=== PATIENT | male | born 1955 | race Caucasian/White ===

== ENCOUNTER → 2016-08-02 | Outpatient (REF) | payer OTHER ==
[~2016-08-02] MED LIST: /FEXO60TA OR; ALBU17IN2 IN; ASPI81TA83 OR; DEPA500T2 OR; HYDR25TA8 OR; IBUP400T OR; LEVA750T OR; LIPI80TA OR; LISI20TA5 OR; MUCU400T2 OR; NORV5TAB OR; PRED10TA2 OR; PRIL40CA OR; SALINE INH; SING10TA31 OR; SYMB80AE IN; TYLE500T53 OR
[2016-08-02 15:54] LABS: BASO # 0.1 K/mm3 (0.0-0.2); BASO % 0.8 % (0.0-1.0); EOS # 0.2 K/mm3 (0.0-0.50); LARGE UNSTAINED CELL # 0.2 K/mm3 (0.0-0.4); LARGE UNSTAINED CELL % 2.6 % (0.0-4.0); LYMPH # 2.1 K/mm3 (1.5-4.5); LYMPH % 23.5 % (24.0-44.0); MEAN CORPUSCULAR HEMOGLOBIN 33.3 pg (27.0-33.0); MEAN CORPUSCULAR HGB CONC 34.7 g/dl (32.0-36.5); MEAN CORPUSCULAR VOLUME 96.1 fl (80.0-96.0); MONO # 0.6 K/mm3 (0.0-0.8); MONO % 6.9 % (0.0-5.0); NEUTROPHILS # 5.8 K/mm3 (1.8-7.7); NEUTROPHILS % 64.2 % (36.0-66.0); PLATELET COUNT, AUTOMATED 198 k/mm3 (150-450); RED CELL DISTRIBUTION WIDTH 12.8 % (11.5-14.5)
[2016-08-02 16:23] LABS: CHOLESTEROL LEVEL 151 MG/DL (<200); FREE T4 1.02 NG/DL (0.76-1.46); TRIGLYCERIDES LEVEL 137 MG/DL (<150)
== END ==
LOC: M SFHCPLAZ 11:43
PROVIDERS: ATTEND Family Medicine
DX: N18.2 Chronic kidney disease, stage 2 (mild) (principal); E78.2 Mixed hyperlipidemia; R73.01 Impaired fasting glucose; K21.9 Gastro-esophageal reflux disease without esophagitis

== ENCOUNTER → 2017-01-04 | Outpatient (REF) | payer OTHER ==
[2017-01-04 12:07] LABS: BASO # 0.1 10^3/uL (0.0-0.2); BASO % 0.8 % (0.0-1.0); EOS # 0.1 10^3/uL (0.0-0.50); EOS % 1.6 % (0.0-3.0); LYMPH # 2.1 10^3/uL (1.5-4.5); LYMPH % 26.1 % (24.0-44.0); MEAN CORPUSCULAR HEMOGLOBIN 32.6 pg (27.0-33.0); MEAN CORPUSCULAR HGB CONC 34.2 g/dl (32.0-36.5); MEAN CORPUSCULAR VOLUME 95.2 fl (80.0-96.0); MONO # 0.8 10^3/uL (0.0-0.8); MONO % 10.6 % (0.0-5.0); NEUTROPHILS # 4.8 10^3/uL (1.8-7.7); NEUTROPHILS % 59.9 % (36.0-66.0); PLATELET COUNT, AUTOMATED 190 10^3/uL (150-450); RED CELL DISTRIBUTION WIDTH 12.6 % (11.5-14.5)
[2017-01-04 12:41] LABS: ALBUMIN 4.1 GM/DL (3.2-5.2); ALBUMIN/GLOBULIN RATIO 1.32 (1.00-1.93); ALKALINE PHOSPHATASE 73 U/L (45-117); ALT/SGPT 30 U/L (12-78); ANION GAP 7 MEQ/L (8-16); AST/SGOT 17 U/L (15-37); BILIRUBIN,TOTAL 0.7 MG/DL (0.2-1.0); BLOOD UREA NITROGEN 20 MG/DL (7-18); CARBON DIOXIDE LEVEL 28 MEQ/L (21-32); CHLORIDE LEVEL 107 MEQ/L (98-107); CREATININE FOR GFR 1.01 MG/DL (0.70-1.30); GLOMERULAR FILTRATION RATE > 60.0 (>49); GLUCOSE, FASTING 101 MG/DL (80-110); SODIUM LEVEL 142 MEQ/L (136-145); TOTAL PROTEIN 7.2 GM/DL (6.4-8.2)
== END ==
LOC: M SFHCPLAZ 09:33
PROVIDERS: ATTEND Family Medicine
DX: Z12.5 Encounter for screening for malignant neoplasm of prostate (principal); E55.9 Vitamin D deficiency, unspecified; R73.01 Impaired fasting glucose

== ENCOUNTER → 2017-05-10 | Outpatient (REF) | payer OTHER | LOC: M SFHCPLAZ 16:51 | DX: J06.9 Acute upper respiratory infection, unspecified (principal) ==

== ENCOUNTER → 2017-06-14 | Outpatient (REF) | payer OTHER ==
[2017-06-14 15:56] LABS: BASO # 0.1 10^3/uL (0.0-0.2); BASO % 1.3 % (0.0-1.0); EOS # 0.2 10^3/uL (0.0-0.50); EOS % 1.7 % (0.0-3.0); HEMATOCRIT 43.7 % (42.0-52.0); HEMOGLOBIN 14.6 g/dl (14.0-18.0); IMMATURE GRANULOCYTE % 2.4 % (0-3.0); LYMPH # 3.1 10^3/uL (1.5-4.5); LYMPH % 29.1 % (24.0-44.0); MEAN CORPUSCULAR HEMOGLOBIN 32.4 pg (27.0-33.0); MEAN CORPUSCULAR HGB CONC 33.4 g/dl (32.0-36.5); MEAN CORPUSCULAR VOLUME 96.9 fl (80.0-96.0); MONO % 9.3 % (0.0-5.0); NEUTROPHILS # 6.1 10^3/uL (1.8-7.7); NEUTROPHILS % 56.2 % (36.0-66.0); PLATELET COUNT, AUTOMATED 211 10^3/uL (150-450); RED BLOOD COUNT 4.51 10^6/uL (4.30-6.10); RED CELL DISTRIBUTION WIDTH 13.2 % (11.5-14.5); WHITE BLOOD COUNT 10.8 10^3/uL (4.0-10.0)
[2017-06-14 16:11] LABS: ALBUMIN 4.5 GM/DL (3.2-5.2); ALBUMIN/GLOBULIN RATIO 1.41 (1.00-1.93); ALKALINE PHOSPHATASE 71 U/L (45-117); ALT/SGPT 28 U/L (12-78); ANION GAP 6 MEQ/L (8-16); AST/SGOT 17 U/L (7-37); BILIRUBIN,TOTAL 0.7 MG/DL (0.2-1.0); BLOOD UREA NITROGEN 23 MG/DL (7-18); CARBON DIOXIDE LEVEL 29 MEQ/L (21-32); CHLORIDE LEVEL 107 MEQ/L (98-107); CHOLESTEROL LEVEL 171 MG/DL (<200); CHOLESTEROL RISK RATIO 3.489 (<5); CREATININE FOR GFR 1.09 MG/DL (0.70-1.30); GLOMERULAR FILTRATION RATE > 60.0 (>49); GLUCOSE, FASTING 90 MG/DL (70-100); HDL CHOLESTEROL 49 MG/DL (>40); LDL CHOLESTEROL 82.6 MG/DL (<100); NON-HDL-C 122 MG/DL; POTASSIUM SERUM 4.2 MEQ/L (3.5-5.1); SODIUM LEVEL 142 MEQ/L (136-145); TOTAL PROTEIN 7.7 GM/DL (6.4-8.2); TRIGLYCERIDES LEVEL 197 MG/DL (<150)
[2017-06-14 16:13] LABS: ESTIMATED AVERAGE GLUCOSE 108 MG/DL (60-110); HEMOGLOBIN A1c 5.4 %
[2017-06-14 16:44] LABS: TOTAL 25(OH) VITAMIN D 48.1 NG/ML (30.0-100.0)
[2017-06-14 16:45] LABS: PTH INTACT 46.4 PG/ML (18.5-88.0); VITAMIN B12 LEVEL > 2000 PG/ML (247-911)
[2017-06-14 22:17] LABS: HEMATOCRIT 43.7 % (42.0-52.0)
[2017-06-17 13:02] LABS: PRETREATED FOLATE FOR RBCFOL 12.4 NG/ML; RBC FOLATE 595.9 NG/ML (280-791)
== END ==
LOC: M SFHCPLAZ 12:32
DX: D75.89 Other specified diseases of blood and blood-forming organs (principal); E78.2 Mixed hyperlipidemia; R73.01 Impaired fasting glucose; E55.9 Vitamin D deficiency, unspecified

== ENCOUNTER → 2017-11-01 | Outpatient (REF) | payer OTHER ==
[2017-11-01 13:39] LABS: VITAMIN B12 LEVEL 1705 PG/ML (247-911)
[2017-11-01 13:40] LABS: APPEARANCE, URINE CLEAR (CLEAR); BACTERIA, URINE AUTO NEGATIVE (NEGATIVE); BILIRUBIN, URINE AUTO NEGATIVE (NEGATIVE); BLOOD, URINE BLOOD NEGATIVE (NEGATIVE); COLOR, URINE YELLOW (YELLOW); GLUCOSE, URINE (UA) AUTO NEGATIVE (NEGATIVE); KETONE, URINE AUTO NEGATIVE (NEGATIVE); LEUKOCYTE ESTERASE, URINE AUTO NEGATIVE (NEGATIVE); MUCUS, URINE SMALL (NEGATIVE); NITRITE, URINE AUTO NEGATIVE (NEGATIVE); PROTEIN, URINE AUTO NEGATIVE (NEGATIVE); RBC, URINE AUTO 1 /HPF (0-3); SPECIFIC GRAVITY URINE AUTO 1.023 (1.002-1.035); SQUAMOUS EPITHELIAL CELL UR AU 0 /HPF (0-6); UROBILINOGEN, URINE AUTO 0.2 mg/dL (0.0-2.0); WBC, URINE AUTO 2 /HPF (0-3)
[2017-11-01 13:53] LABS: ALBUMIN 4.4 GM/DL (3.2-5.2); ALBUMIN/GLOBULIN RATIO 1.42 (1.00-1.93); ALKALINE PHOSPHATASE 69 U/L (45-117); ALT/SGPT 32 U/L (12-78); ANION GAP 5 MEQ/L (8-16); AST/SGOT 22 U/L (7-37); BILIRUBIN,TOTAL 0.9 MG/DL (0.2-1.0); BLOOD UREA NITROGEN 17 MG/DL (7-18); CALCIUM LEVEL 8.8 MG/DL (8.8-10.2); CARBON DIOXIDE LEVEL 30 MEQ/L (21-32); CHLORIDE LEVEL 108 MEQ/L (98-107); CREATININE FOR GFR 0.99 MG/DL (0.70-1.30); GLOMERULAR FILTRATION RATE > 60.0 (>49); GLUCOSE, FASTING 103 MG/DL (70-100); MAGNESIUM LEVEL 2.4 MG/DL (1.8-2.4); POTASSIUM SERUM 4.2 MEQ/L (3.5-5.1); SODIUM LEVEL 143 MEQ/L (136-145); TOTAL PROTEIN 7.5 GM/DL (6.4-8.2)
[2017-11-01 14:04] LABS: MALB URINE SIEMENS 12.7 MG/L; MAU/CREAT RATIO 6.6 MCG/MG (0.0-30.0)
[2017-11-01 14:31] LABS: ESTIMATED AVERAGE GLUCOSE 117 MG/DL (60-110); HEMOGLOBIN A1c 5.7 %
[2017-11-02 14:27] LABS: INSULIN LEVEL 17.4 uIU/mL (2.6-24.9)
== END ==
LOC: M SFHCPLAZ 11:09
DX: R73.01 Impaired fasting glucose (principal); N18.2 Chronic kidney disease, stage 2 (mild); D75.89 Other specified diseases of blood and blood-forming organs

== ENCOUNTER → 2017-11-01 | Outpatient (CLI) | payer BC, OTHER | LOC: M RAD 11:58 | DX: M16.0 Bilateral primary osteoarthritis of hip (principal) | CPT/HCPCS: 73502 ==

== ENCOUNTER → 2017-11-22 | Outpatient (CLI) | payer BC, OTHER ==
[~2017-11-22] MED LIST changes: -/FEXO60TA OR; -ALBU17IN2 IN; -ASPI81TA83 OR; +CONRAY-43 43% 50ML VIAL (Q9960) As Ordered; -DEPA500T2 OR; -HYDR25TA8 OR; -IBUP400T OR; -LEVA750T OR; +LIDOCAINE 1% MDV 20ML VIAL As Ordered; -LIPI80TA OR; -LISI20TA5 OR; -MUCU400T2 OR; -NORV5TAB OR; -PRED10TA2 OR; -PRIL40CA OR; -SALINE INH; -SING10TA31 OR; -SYMB80AE IN; +TRIAMCINOLONE ACETONIDE SUSP 40 MG/ML VIAL (J3301) As Ordered; -TYLE500T53 OR
== END ==
LOC: M RADPRO 10:43
DX: M16.11 Unilateral primary osteoarthritis, right hip (principal)
CPT/HCPCS: 20610

== ENCOUNTER → 2018-02-16 | Outpatient (CLI) | payer BC, OTHER | LOC: M RADPRO 12:02 | DX: M16.11 Unilateral primary osteoarthritis, right hip (principal) | CPT/HCPCS: 20610 ==

== ENCOUNTER → 2018-04-07 | Outpatient (REF) | payer OTHER ==
[~2018-04-07] MED LIST changes: +/FEXO60TA OR; +ALBU17IN2 IN; +ASPI81TA83 OR; -CONRAY-43 43% 50ML VIAL (Q9960) As Ordered; +DEPA500T2 OR; +HYDR25TA8 OR; +IBUP400T OR; +LEVA750T OR; -LIDOCAINE 1% MDV 20ML VIAL As Ordered; +LIPI80TA OR; +LISI20TA5 OR; +MUCU400T2 OR; +NORV5TAB OR; +PRED10TA2 OR; +PRIL40CA OR; +SALINE INH; +SING10TA31 OR; +SYMB80AE IN; -TRIAMCINOLONE ACETONIDE SUSP 40 MG/ML VIAL (J3301) As Ordered; +TYLE500T53 OR
[2018-04-07 14:10] LABS: BASO # 0.1 10^3/uL (0.0-0.2); EOS # 0.1 10^3/uL (0.0-0.50); HEMATOCRIT 43.3 % (42.0-52.0); HEMOGLOBIN 14.7 g/dl (13.5-17.5); LYMPH # 2.5 10^3/uL (1.5-4.5); MEAN CORPUSCULAR HGB CONC 33.9 g/dl (32.0-36.5); MEAN CORPUSCULAR VOLUME 97.3 fl (80.0-96.0); MONO # 1.2 10^3/uL (0.0-0.8); MONO % 10.1 % (0.0-5.0); NEUTROPHILS # 7.4 10^3/uL (1.8-7.7); NEUTROPHILS % 64.5 % (36.0-66.0); PLATELET COUNT, AUTOMATED 197 10^3/uL (150-450); RED BLOOD COUNT 4.45 10^6/uL (4.30-6.10); WHITE BLOOD COUNT 11.5 10^3/uL (4.0-10.0)
[2018-04-07 14:16] LABS: ALBUMIN 4.3 GM/DL (3.2-5.2); ALT/SGPT 28 U/L (12-78); BILIRUBIN,TOTAL 0.7 MG/DL (0.2-1.0); BLOOD UREA NITROGEN 17 MG/DL (7-18); CARBON DIOXIDE LEVEL 28 MEQ/L (21-32); CHLORIDE LEVEL 106 MEQ/L (98-107); CHOLESTEROL LEVEL 159 MG/DL (<200); CREATININE FOR GFR 1.02 MG/DL (0.70-1.30); GLOMERULAR FILTRATION RATE > 60.0 (>49); GLUCOSE, FASTING 102 MG/DL (70-100); HDL CHOLESTEROL 50 MG/DL (>40); LDL CHOLESTEROL 82 MG/DL (<100); NON-HDL-C 109 MG/DL; POTASSIUM SERUM 4.3 MEQ/L (3.5-5.1); SODIUM LEVEL 142 MEQ/L (136-145); TOTAL PROTEIN 7.2 GM/DL (6.4-8.2); TRIGLYCERIDES LEVEL 135 MG/DL (<150)
[2018-04-07 14:22] LABS: PTH INTACT 36.3 PG/ML (18.5-88.0); TOTAL 25(OH) VITAMIN D 63.8 NG/ML (30.0-100.0)
[2018-04-07 16:03] LABS: HEMOGLOBIN A1c 5.7 %
== END ==
LOC: M SFHCPLAZ 10:53
PROVIDERS: ATTEND Family Medicine
DX: D75.89 Other specified diseases of blood and blood-forming organs (principal); N18.2 Chronic kidney disease, stage 2 (mild); R73.01 Impaired fasting glucose; E78.2 Mixed hyperlipidemia; Z12.5 Encounter for screening for malignant neoplasm of prostate

== ENCOUNTER → 2018-04-27 | Outpatient (CLI) | payer BC, OTHER ==
[~2018-04-27] MED LIST changes: +CONRAY-43 43% 50ML VIAL (Q9960) As Ordered ONE; +LIDOCAINE 1% MDV 20ML VIAL As Ordered ONE; +TRIAMCINOLONE ACETONIDE SUSP 40 MG/ML VIAL (J3301) As Ordered ONE
--- NOTE | 2018-04-27 18:09 | REP ---
RIGHT HAND INJECTION The procedure was performed under the direct supervision of Dr. Chen. The benefits and risks including but not limited to pain infection bleeding and anaphylaxis were explained to the patient and informed consent was obtained. The right femoral neck was localized using fluoroscopic guidance. The skin was prepped and draped in a sterile fashion. 1% lidocaine was used as a local anesthetic. Using fluoroscopic guidance a 22-gauge spinal needle was inserted and advanced to the femoral neck. 0.5 ml of Conray 43 was injected to verify placement. 5 ml of a solution containing 4 ml of 1% lidocaine and 1 ml of Kenalog 40 mg injected. The needle was then removed. The patient tolerated the procedure well and there were no immediate complications. Less than 6 seconds of fluoroscopy time was utilized for this procedure. Reviewed by ALANIS Dias 04/27/2018 04:13 P Electronically Signed by Oswaldo Chen MD 04/27/2018 05:59 P
== END ==
LOC: M RADPRO 10:03
PROVIDERS: ATTEND Family Medicine
DX: M16.11 Unilateral primary osteoarthritis, right hip (principal)
CPT/HCPCS: 20610; 77002; J3301; Q9960

== ENCOUNTER 2018-09-19 08:12 | Day surgery (SDC) | payer MEDICARE, BC, OTHER ==
[~2018-09-19] VITALS: Ht 177.8 cm; Wt 93.9 kg
[~2018-09-19 08:12] MED LIST changes: +ALBU83IN INH; +ASPI81CH48 PO; +ATOR80TA59 PO; -CONRAY-43 43% 50ML VIAL (Q9960) As Ordered ONE; +D-101000 PO; +D3 S20002 PO; +FISH1000 PO; -LIDOCAINE 1% MDV 20ML VIAL As Ordered ONE; +LISI-538 PO; +MAGN250T7 PO; +MONT10TA2 PO; +NS 1,000 ML IV ONE; +OMEP-221 PO; +THIA100T7 PO; -TRIAMCINOLONE ACETONIDE SUSP 40 MG/ML VIAL (J3301) As Ordered ONE; +VIAG100T PO; +VITA1TAB23 PO; +VITA500T PO; +VITA50TA47 PO; +VITA50TA7 PO
[2018-09-19] MEDS ORDERED: PROPOFOL 200 MG/20 ML VIAL As Ordered ONE ×2 (08:58→10:02)
--- NOTE | 2018-09-19 09:54 | ROOR ---
Patient Name: Donta Burrows Procedure Date: 09/19/2018 9:26 AM Date of : 1955 Age: 63 Room: [facility] Gender: Male Note Status: Finalized Procedure: Total Colonoscopy to Cecum Indications: Colon cancer screening in patient at increased risk: Family history of 1st-degree relative with colon polyps, Incidental - Abdominal pain in the right lower quadrant Providers: Taras Jones MD Referring MD: Elvin Owens MD Requesting Provider: Medicines: Monitored Anesthesia Care Complications: No immediate complications. Procedure: Pre-Anesthesia Assessment: - The heart rate, respiratory rate, oxygen saturations, blood pressure, adequacy of pulmonary ventilation, and response to care were monitored throughout the procedure. The Colonoscope was introduced through the anus and advanced to the cecum, identified by appendiceal orifice and ileocecal valve. The colonoscopy was performed without difficulty. The patient tolerated the procedure well. The quality of the bowel preparation was excellent. Findings: The perianal and digital rectal examinations were normal. Non-bleeding internal hemorrhoids were found during retroflexion. The hemorrhoids were small and Grade I (internal hemorrhoids that do not prolapse). No other significant abnormalities were identified in a careful examination of the remainder of the colon. The exam was otherwise without abnormality on direct and retroflexion views. Scattered small-mouthed diverticula were found in the recto-sigmoid colon and sigmoid colon. Impression: - Non-bleeding internal hemorrhoids. - The examination was otherwise normal on direct and retroflexion views. - Diverticulosis in the recto-sigmoid colon and in the sigmoid colon. - No specimens collected. - The exam was otherwise normal to the cecum. Recommendation: - Patient has a contact number available for emergencies. The signs and symptoms of potential delayed complications were discussed with the patient. Return to normal activities tomorrow. Written discharge instructions were provided to the patient. - High fiber diet. - Discharge patient to home. - Repeat colonoscopy in 5 years for surveillance. - Return to referring physician. - Continue present medications. - The findings and recommendations were discussed with the patient's family. Taras Jones MD Taras Jones MD 09/19/2018 9:54:29 AM Electronically signed by Taras Jones MD Number of Addenda: 0 Note Initiated On: 09/19/2018 9:26 AM Estimated Blood Loss: Estimated blood loss: none.
[2018-09-19 10:14] VITALS: BP 149/95
== END 2018-09-19 10:16 | disposition home or self-care (01) ==
LOC: M OPP 08:12
PROVIDERS: ATTEND Internal Medicine Gastroenterology
DX: Z12.11 Encounter for screening for malignant neoplasm of colon (principal); Z86.010 Personal history of colon polyps; Z83.71 Family history of colonic polyps; K64.0 First degree hemorrhoids; K57.30 Diverticulosis of large intestine without perforation or abscess without bleeding; K21.9 Gastro-esophageal reflux disease without esophagitis; Z79.82 Long term (current) use of aspirin; Z79.899 Other long term (current) drug therapy; Z88.0 Allergy status to penicillin; Z88.1 Allergy status to other antibiotic agents; Z88.8 Allergy status to other drugs, medicaments and biological substances

== ENCOUNTER → 2018-10-09 | Outpatient (REF) | payer MEDICARE, OTHER ==
[~2018-10-09] MED LIST changes: -NS 1,000 ML IV ONE
[2018-10-09 12:46] LABS: APPEARANCE, URINE CLEAR (CLEAR); BACTERIA, URINE AUTO NEGATIVE (NEGATIVE); BILIRUBIN, URINE AUTO NEGATIVE (NEGATIVE); BLOOD, URINE BLOOD NEGATIVE (NEGATIVE); COLOR, URINE YELLOW (YELLOW); GLUCOSE, URINE (UA) AUTO NEGATIVE (NEGATIVE); KETONE, URINE AUTO NEGATIVE (NEGATIVE); LEUKOCYTE ESTERASE, URINE AUTO NEGATIVE (NEGATIVE); MUCUS, URINE SMALL (NEGATIVE); NITRITE, URINE AUTO NEGATIVE (NEGATIVE); PROTEIN, URINE AUTO NEGATIVE (NEGATIVE); RBC, URINE AUTO 4 /HPF (0-3); SPECIFIC GRAVITY URINE AUTO 1.024 (1.002-1.035); SQUAMOUS EPITHELIAL CELL UR AU 0 /HPF (0-6); UROBILINOGEN, URINE AUTO 0.2 mg/dL (0.0-2.0); WBC, URINE AUTO 1 /HPF (0-3)
[2018-10-09 12:47] LABS: BASO # 0.1 10^3/uL (0.0-0.2); BASO % 0.9 % (0.0-1.0); EOS # 0.1 10^3/uL (0.0-0.50); EOS % 1.3 % (0.0-3.0); HEMATOCRIT 44.2 % (42.0-52.0); HEMOGLOBIN 14.6 g/dl (13.5-17.5); LYMPH # 2.2 10^3/uL (1.5-4.5); LYMPH % 20.4 % (24.0-44.0); MEAN CORPUSCULAR HEMOGLOBIN 33.1 pg (27.0-33.0); MEAN CORPUSCULAR VOLUME 100.2 fl (80.0-96.0); MONO % 8.9 % (0.0-5.0); NEUTROPHILS # 7.1 10^3/uL (1.8-7.7); NEUTROPHILS % 67.3 % (36.0-66.0); PLATELET COUNT, AUTOMATED 197 10^3/uL (150-450); RED BLOOD COUNT 4.41 10^6/uL (4.30-6.10); WHITE BLOOD COUNT 10.6 10^3/uL (4.0-10.0)
[2018-10-09 12:53] LABS: ALBUMIN 4.2 GM/DL (3.2-5.2); ALT/SGPT 28 U/L (12-78); BILIRUBIN,TOTAL 0.6 MG/DL (0.2-1.0); BLOOD UREA NITROGEN 17 MG/DL (7-18); CALCIUM LEVEL 8.8 MG/DL (8.8-10.2); CARBON DIOXIDE LEVEL 28 MEQ/L (21-32); CHLORIDE LEVEL 110 MEQ/L (98-107); CREATININE FOR GFR 1.14 MG/DL (0.70-1.30); GLOMERULAR FILTRATION RATE > 60.0 (>49); GLUCOSE, FASTING 102 MG/DL (70-100); POTASSIUM SERUM 4.2 MEQ/L (3.5-5.1); SODIUM LEVEL 144 MEQ/L (136-145); TOTAL PROTEIN 7.2 GM/DL (6.4-8.2)
[2018-10-09 13:26] LABS: MALB URINE SIEMENS 18.6 MG/L; MAU/CREAT RATIO 7.6 MCG/MG (0.0-30.0)
== END ==
LOC: M SFHCPLAZ 09:44
PROVIDERS: ATTEND Family Medicine
DX: N18.2 Chronic kidney disease, stage 2 (mild) (principal); R73.01 Impaired fasting glucose

== ENCOUNTER → 2019-04-13 | Outpatient (REF) | payer MEDICARE, OTHER ==
[2019-04-13 11:44] LABS: APPEARANCE, URINE CLEAR (CLEAR); BACTERIA, URINE AUTO NEGATIVE (NEGATIVE); BILIRUBIN, URINE AUTO NEGATIVE (NEGATIVE); BLOOD, URINE BLOOD NEGATIVE (NEGATIVE); COLOR, URINE YELLOW (YELLOW); GLUCOSE, URINE (UA) AUTO NEGATIVE (NEGATIVE); KETONE, URINE AUTO NEGATIVE (NEGATIVE); LEUKOCYTE ESTERASE, URINE AUTO NEGATIVE (NEGATIVE); NITRITE, URINE AUTO NEGATIVE (NEGATIVE); PROTEIN, URINE AUTO NEGATIVE (NEGATIVE); RBC, URINE AUTO 3 /HPF (0-3); SQUAMOUS EPITHELIAL CELL UR AU 0 /HPF (0-6); UROBILINOGEN, URINE AUTO 0.2 mg/dL (0.0-2.0); WBC, URINE AUTO 0 /HPF (0-3)
[2019-04-13 11:57] LABS: INR 1.02; PROTHROMBIN TIME 13.1 SECONDS (11.8-14.0)
[2019-04-13 11:58] LABS: PARTIAL THROMBOPLASTIN TIME 30.9 SECONDS (25.0-38.4)
[2019-04-13 12:11] LABS: ALBUMIN 4.3 GM/DL (3.2-5.2); ALT/SGPT 36 U/L (12-78); BLOOD UREA NITROGEN 18 MG/DL (7-18); CALCIUM LEVEL 9.4 MG/DL (8.8-10.2); CARBON DIOXIDE LEVEL 29 MEQ/L (21-32); CHLORIDE LEVEL 107 MEQ/L (98-107); CHOLESTEROL LEVEL 172 MG/DL (<200); CHOLESTEROL RISK RATIO 3.659 (<5); CREATININE FOR GFR 1.08 MG/DL (0.70-1.30); FREE T4 0.92 NG/DL (0.76-1.46); GLOMERULAR FILTRATION RATE > 60.0 (>49); GLUCOSE, FASTING 102 MG/DL (70-100); HDL CHOLESTEROL 47 MG/DL (>40); LDL CHOLESTEROL 94 MG/DL (<100); NON-HDL-C 125 MG/DL; POTASSIUM SERUM 4.4 MEQ/L (3.5-5.1); SODIUM LEVEL 142 MEQ/L (136-145); TOTAL 25(OH) VITAMIN D 40.1 NG/ML (30.0-100.0); TOTAL PROTEIN 7.8 GM/DL (6.4-8.2); TRIGLYCERIDES LEVEL 156 MG/DL (<150)
[2019-04-13 12:25] LABS: MALB URINE SIEMENS 12.6 MG/L; MAU/CREAT RATIO 8.8 MCG/MG (0.0-30.0)
[2019-04-13 12:53] LABS: HEMOGLOBIN A1c 5.6 %
== END ==
LOC: M SFHCPLAZ 09:46
PROVIDERS: ATTEND Family Medicine
DX: I12.9 Hypertensive chronic kidney disease with stage 1 through stage 4 chronic kidney disease, or unspecified chronic kidney disease (principal); N18.2 Chronic kidney disease, stage 2 (mild); Z12.5 Encounter for screening for malignant neoplasm of prostate; R73.01 Impaired fasting glucose; E78.2 Mixed hyperlipidemia; E55.9 Vitamin D deficiency, unspecified
CPT/HCPCS: 36415; 80053; 80061; 81001; 82043; 82306; 83036; 83970; 84439; 84443; 85610; 85730; G0103; G0463

== ENCOUNTER → 2019-09-06 | Outpatient (CLI) | payer MEDICARE, BC, OTHER ==
[~2019-09-06] MED LIST changes: +ACET-907 PO; +ASPI81CH33 PO; +CVS2500C PO; +K2 P1TAB PO; -MONT10TA2 PO; +MONT10TA4 PO; +PERC5TAB12 PO; +PROAAER10 INH; +VITA-243 PO; -VITA500T PO; +[UNRECOGNIZED DRUG - OTHER] NARES
[2019-09-06 10:17] LABS: HEMATOCRIT 41.6 % (42.0-52.0); HEMOGLOBIN 14.4 g/dl (13.5-17.5); MEAN CORPUSCULAR HEMOGLOBIN 33.4 pg (27.0-33.0); MEAN CORPUSCULAR HGB CONC 34.6 g/dl (32.0-36.5); MEAN CORPUSCULAR VOLUME 96.5 fl (80.0-96.0); PLATELET COUNT, AUTOMATED 191 10^3/uL (150-450); RED BLOOD COUNT 4.31 10^6/uL (4.30-6.10); WHITE BLOOD COUNT 9.3 10^3/uL (4.0-10.0)
[2019-09-06 10:24] LABS: INR 1.01
[2019-09-06 10:37] LABS: ERYTHROCYTE SEDIMENTATION RATE 8 mm/hr (0-20)
[2019-09-06 10:50] LABS: ALBUMIN 4.4 GM/DL (3.2-5.2); ALT/SGPT 34 U/L (12-78); BILIRUBIN,TOTAL 0.8 MG/DL (0.2-1.0); BLOOD UREA NITROGEN 19 MG/DL (7-18); CALCIUM LEVEL 8.6 MG/DL (8.8-10.2); CARBON DIOXIDE LEVEL 28 MEQ/L (21-32); CHLORIDE LEVEL 107 MEQ/L (98-107); CREATININE FOR GFR 1.06 MG/DL (0.70-1.30); GLOMERULAR FILTRATION RATE > 60.0 (>49); GLUCOSE, FASTING 108 MG/DL (70-100); SODIUM LEVEL 141 MEQ/L (136-145); TOTAL PROTEIN 7.4 GM/DL (6.4-8.2)
--- NOTE | 2019-09-06 11:19 | REP ---
CHEST, TWO VIEWS: Two views of the chest are performed and compared to a prior study of 12/12/2010. There is no acute infiltrate. The lungs are clear. There is mild elevation of the right hemidiaphragm unchanged. The heart is normal in size. The mediastinal silhouette is unchanged. There are mild degenerative changes of the spine. IMPRESSION: No active pulmonary disease. Electronically Signed by Fei Mayo MD 09/06/2019 12:42 P
--- NOTE | 2019-09-07 22:03 | ECGEPIP ---
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 No prior ECG available for comparison at the time of interpretation. Electronically Signed on 09-07-2019 22:03:24 EDT by Johnny Scanlon
== END ==
LOC: M LAB 09:12
PROVIDERS: ATTEND Orthopaedic Surgery
DX: Z01.818 Encounter for other preprocedural examination (principal); M16.11 Unilateral primary osteoarthritis, right hip

== ENCOUNTER → 2019-09-09 | Outpatient (CLI) | payer MEDICARE, OTHER | LOC: M LABSMTC 09:09 | PROVIDERS: ATTEND Anesthesiology | DX: Z01.818 Encounter for other preprocedural examination (principal); Z11.59 Encounter for screening for other viral diseases ==

== ENCOUNTER 2019-09-12 06:04 | Inpatient (IN) | payer MEDICARE, BC, OTHER ==
--- NOTE | 2019-09-10 17:15 | HPE ---
DATE OF ADMISSION: 09/12/2019 ADMITTING DIAGNOSIS: Symptomatic right hip osteoarthritis. HISTORY OF PRESENT ILLNESS: Mr. Burrows is a 64-year-old male with irretractable right hip pain secondary to severe right hip osteoarthritis. He is consented for right total hip arthroplasty per Dr. Christiano Duncan. Medically, he was optimized by Dr. Kathy Chaudhari. X-rays are consistent with severe osteoarthritis. ALLERGIES: Include PENICILLIN, KEFLEX, and NONSTEROIDAL ANTI-INFLAMMATORY DRUGS. IBUPROFEN causes anaphylaxis. PENICILLIN causing interstitial nephritis. LIDOCAINE causes hives. MEDICAL PROBLEM LIST: Includes severe right hip osteoarthritis. Hypertension. Allergic rhinitis/chronic sinusitis. Asthma mild, persistent. Hyperlipidemia. Nonalcoholic fatty liver disease (NAFLD). Impaired fasting glucose. Obesity. Headaches migrainous, common type. Bilateral flare hyperintensities. Erectile dysfunction. Rosacea. History of interstitial nephritis with secondary acute renal failure. Cervical degenerative joint disease (DJD). Hypercholesteremia. [id number]. Lung disease. Hard stool constipation. SURGICAL HISTORY: Colonoscopy, 2002, Robert. Bilateral eye surgery, November 2012. Colonoscopy, hyperplastic polyp, Robert, 2013. Bilateral knee arthroscopy 1984, 1994. Right inguinal hernia repair. Colonoscopy, Robert, normal, 09/2018. FAMILY HISTORY: Father, [id number], , two CVAs, coronary artery disease, dementia. Mother alive, dementia. SOCIAL HISTORY: He is a nonsmoker. No tobacco. Denies illicit drugs. REVIEW OF SYSTEMS: He denies chest pain, shortness of breath, dyspnea on exertion, fever, chills, malaise, upper respiratory or urinary tract symptoms. MEDICATION LIST: - sildenafil citrate 100 mg - omeprazole 40 mg - lisinopril 20 mg - albuterol sulfate HFA 108 (90 base) mcg/ECT. - atorvastatin calcium 80 mg - montelukast sodium 10 mg - Fluzone high dose 0.5 mL - Proctozone HC 2.5% - Suprep bowel kit 17.5 - 3.13 - 1.6 grams/177 mL - pseudoephedrine HCl 30 mg - fish oil 435 mg - magnesium 300 mg - vitamin B6 50 mg - vitamin B1 100 mg. PHYSICAL EXAMINATION: Vital Signs: Blood pressure 140/70. Temperature 98.6. Weight 210, body mass index (BMI) 30, height 70.5. This is a pleasant, well-developed, well-nourished male in no acute distress. Alert and oriented times three. Mood and affect are appropriate. Normocephalic. Neck: Supple. Negative jugular venous distention (JVD) or bruits. Lungs: Clear to auscultation. Chest rises symmetrically. Regular rate and rhythm. Bowels soft, nontender times four. Right hip range of motion is irritable and limited throughout ranges. Bilateral lower extremities skin is intact, benign, noninfectious looking. Medical clearance was reviewed. EKG sinus rhythm, early precordial transition within normal limits. Chest x-ray no active pulmonary disease. LABORATORY DATA As of 08/12/2019 show hematocrit of 41.6, mean corpuscular volume 96.5, mean corpuscular hemoglobin 33.4. Glucose fasting 108, BUN 19, anion gap 6, calcium 8.6. Otherwise unremarkable. 1. Right hip symptomatic end-stage degenerative joint disease. 2. Patient consented for a right total hip arthroplasty per Dr. Christiano Duncan. 3. Medical optimization per Dr. Kathy Chaudhari. 4. On-call to operating room (OR) 600 mg IV clindamycin per penicillin and Keflex allergy. 5. Sexually transmitted disease (STD) and thromboembolism deterrents (TEDs) to OR. 6. The patient has nonsteroidal anti-inflammatory drug (NSAID) allergy causing anaphylaxis to be considered postoperatively. 7. Notes history of hard stool and constipation, which should be considered with his postoperative course.
[~2019-09-12] VITALS: Ht 177.8 cm; Wt 96.6 kg
[2019-09-12] VITALS (7 sets, daily range): BP systolic 105–158; BP diastolic 71–86
[~2019-09-12 06:04] MED LIST changes: -ASPI81CH33 PO; +LR 1,000 ML IV ONE; -PERC5TAB12 PO
[2019-09-12] MEDS ORDERED: VANCOMYCIN HCL 1,000 MG, VIAL MATE ADAPTER 1 EACH in D5W 250 ML IV SCH (06:45)
[2019-09-12] MEDS ORDERED: ACETAMINOPHEN 500 MG TAB PO ONE (06:45)
[2019-09-12] MEDS ORDERED: CLINDAMYCIN INJ 900MG/6ML VIAL As Ordered ONE (07:18)
[2019-09-12] MEDS ORDERED: MIDAZOLAM INJ 2MG/2ML VIAL (J2250 PER 1MG) As Ordered ONE (07:56)
[2019-09-12] MEDS ORDERED: propofoL 200 MG/20 ML VIAL As Ordered ONE ×2 (07:56→08:44)
[2019-09-12] MEDS ORDERED: fentaNYL 100 MCG/2 ML INJECTION (J3010) As Ordered ONE (07:56)
[2019-09-12] MEDS ORDERED: ePHEDrine SULFATE 25 MG/5 ML(5MG/ML) SYRINGE As Ordered ONE (08:08)
[2019-09-12] MEDS ORDERED: PHENYLephrine HCL 500 MCG/5 ML (100MCG/ML) SYRINGE (J2370) As Ordered ONE (08:21)
[2019-09-12] MEDS ORDERED: ONDANSETRON 4MG/2ML VIAL IV PRN ×2 (09:45→10:00)
[2019-09-12] MEDS ORDERED: fentaNYL 100 MCG/2 ML INJECTION (J3010) IV PRN (09:45)
[2019-09-12] MEDS ORDERED: HYDROMORPHONE HCL 0.5 MG/ 0.5 ML SYRINGE (J1170 PER 1) IV PRN (09:45)
[2019-09-12] MEDS ORDERED: LR 1,000 ML IV SCH ×2 (09:45)
[2019-09-12] MEDS ORDERED: oxyCODONE 5MG TAB PO PRN (09:45)
[2019-09-12] MEDS ORDERED: PERCOCET 5MG/325MG TAB PO PRN (10:00)
--- NOTE | 2019-09-12 10:07 | HPEPDOC ---
[facility] Medical History & Physical Date of Admission Sep 12, 2019 Date of Service: Sep 12, 2019 Primary Care Physician: Elvin Owens M.D. Attending Physician: Sinai Dutton MD History and Physical CONSULT: Medical management HISTORY OF PRESENT ILLNESS: Patient is a 64 y/o M with extensive PMH of severe right hip OA, HTN, hyperlipidemia, nonalcoholic liver disease, asthma, obesity, demyelinating disease who presented to [facility] for elective right total hip arthroplasty on 09/12/2019. As per orthopedic notes, the aptient has had irretractable right hip pain secondary to severe right hip osteoarthritis. He consented for right total hip arthroplasty per Dr. Christiano Duncan. Total right hip arthroplasty was performed on 09/12/2019. EBL 200 mL, 1600mL LR given, 100 mcg of fentanyl. There were no noted complications during surgery. Patient denies chest pain, shortness of breath, n/v/d, fevers, chills, decreased appetite, recent hospitalizations or recent illnesses. He says he has had constipation prior to surgery that was addressed by PCP with last bowel movement 09/11/19. The patient rates his pain a 2/10 on pain scale post operatively. REVIEW OF SYSTEMS: CONSTITUTIONAL: Denies lack of energy, unexplained weight gain or weight loss, loss of appetite, fever, night sweats EYES: Denies eye drainage, eye pain, visual changes, dry/irritated eye EARS, NOSE, MOUTH, THROAT: Denies ringing in ears, mouth sores, loose teeth, sore throat, facial numbness or pain NECK: Denies swollen glands CARDIOVASCULAR: Denies irregular heartbeat, racing heart, chest pains, swelling of feet or legs, pain in legs with walking RESPIRATORY: Denies shortness of breath, night sweats, wheezing, sputum production, oxygen at home, coughing up blood, cough lasting > 1 month GASTROINTESTINAL: Denies abdominal pain, bloody stool, diarrhea, heartburn, nausea, vomiting GENITOURINARY: Denies painful urination, bloody urine, frequent urination, urgency, leaking urine, impotence MUSCULOSKELETAL: Denies joint pain, muscle pain, leg swelling INTEGUMENTARY: Denies rash, itching, new skin lesion, change in existing skin lesion, hair loss or increase, breast changes. NEUROLOGICAL: Denies headaches, dizziness, difficulty walking, numbness or tingling PSYCHIATRIC: Denies depression, anxiety, recurrent bad thoughts, mood swings, hallucinations PAST MEDICAL HISTORY: Severe right hip OA HTN Allergic rhinitis/chronic sinusitis. Asthma mild, persistent Hyperlipidemia Nonalcoholic fatty liver disease Impaired fasting glucose Obesity Headaches migrainous, common type Erectile dysfunction Rosacea History of interstitial nephritis with secondary acute renal failure. Cervical DJD HLD [id number] Constipation Hx of demyelinating disease PAST SURGICAL HISTORY: Colonoscopy, 2002 Bilateral eye surgery, November 2012 Colonoscopy, hyperplastic polyp, 2013 Bilateral knee arthroscopy 1984, 1994 Right inguinal hernia repair Colonoscopy, 09/2018 FAMILY HISTORY: Father: CAD, dementia, HTN, DM type II . at 79 y/o Mother: dementia. at 85 y/o SOCIAL HISTORY: He is a nonsmoker. No tobacco. Denies illicit drugs. ALLERGIES: Please see below. HOME MEDICATIONS: Please see below. PHYSICAL EXAMINATION: CONSTITUTIONAL: No acute distress, resting comfortably, slightly hard of hearing, AAO x 3 EYES: PERRLA, EOM intact HENT, MOUTH: Normocephalic, atraumatic, moist mucous membranes, hearing aids in both ears NECK: SUPPLE, no JVD, no lymphadenopathy, no carotid bruit CV: Regular rate and rhythm, S1S2 normal, no murmurs/rubs/gallops RESPIRATORY: Clear to auscultation bilaterally, no rales/rhonchi/wheezes GI: BS positive in 4 quadrants, soft, nontender, nondistended, no rebound or guarding, no organomegaly : Deferred MUSCULOSKELETAL: Incision on right hip, covered in bandage. No erythema surrounding area or warmth, nonsuppurative. ROM not tested. No cyanosis, clubbing, swelling, joint deformity, extremity edema INTEGUMENTARY: Intact, no rashes, no lesions, no erythema NEUROLOGIC: Cranial Nerves II-XII are intact, no focal deficits PSYCHIATRIC: Mood and affect are normal LABORATORY DATA: Please see below IMAGING: Post-op right hip XR: There is placement of a total hip prosthesis, which appears to be in good position. Osseous structures are intact and well aligned. There are metallic beth in the adjacent right pelvis ASSESSMENT: 64 y/o M with severe right hip osteoarthritis post-operative for total right hip arthroplasty. PLAN: 1. Severe right hip osteoarthritis post-operative for total right hip arthroplasty 09/12/2019. Pain controlled, VS stable, minimal blood loss with no complications during surgery. Managed per primary orthopedic team. 2. Constipation. On IVFs, starting on colace BID, senna HS and miralax PRN. Monitor with use of narcotics. 3. Asthma. Currently stable on RA, not in exacerbation. C/w singulair and albuterol PRN. 4. HLD. Statin. 5. GERD. PPI. 6. Nonalcoholic fatty liver disease. Hx of obesity. F/u CMP in AM. 7. Hx of impaired fasting glucose. Last HbA1c in 04/2019 5.6 and wnl. No need for insulins or blood sugar checks at this time. 8. Erectile dysfunction. Hold sildenafil. 9. HTN. Stable. C/w home meds. 10. DVT px. ASA, TEDs. Vital Signs Vital Signs Date Time Temp Pulse Resp B/P (MAP) Pulse Ox O2 Delivery O2 Flow Rate FiO2 09/12/19 09:40 75 16 111/58 (75) 97 Room Air 09/12/19 09:33 97.3 Home Medications Scheduled Ascorbic Acid (Vitamin C) 500 Mg Tablet, 1,000 MG PO DAILY Aspirin (Aspirin) 81 Mg Tab.chew, 81 MG PO DAILY Atorvastatin Calcium (Atorvastatin Calcium) 80 Mg Tablet, 80 MG PO DAILY Lisinopril (Lisinopril) 20 Mg Tablet, 20 MG PO DAILY Magnesium Oxide (Magnesium) 250 Mg Tablet, 250 MG PO DAILY Montelukast Sodium (Montelukast Sodium) 10 Mg Tablet, 10 MG PO DAILY [place]-3 Fatty Acids/Fish Oil (Fish Oil 1,000 mg Capsule) 1 Each Capsule, 1,000 MG PO DAILY Omeprazole (Omeprazole) 40 Mg Capsule.dr, 40 MG PO DAILY Pyridoxine HCl (Vitamin B6) (Vitamin B-6) 50 Mg Tablet, 100 MG PO DAILY Thiamine HCl (Thiamine HCl) 100 Mg Tablet, 100 MG PO DAILY Vitamin D3/Vitamin K2 (Mk4) (K2 Plus D3 Tablet) 1 Each Tablet, 1 TAB PO DAILY Scheduled PRN Acetaminophen (Tylenol) 325 Mg Tablet, 650 MG PO for PAIN OR FEVER Albuterol Sulf (Albuterol Sulfate) 2.5 Mg/3 Ml Vial.neb, 2.5 MG INH Q4HP PRN for SOB/WHEEZING Albuterol Sulfate (Proair Hfa) 8.5 Gm Hfa.aer.ad, 2 PUFF INH for SHORTNESS OF BREATH Oxymetazoline HCl (Sinus Nasal [place]) 30 Ml [place], 2 SPRAYS NARES DAILYPRN PRN for CONGESTION Sildenafil Citrate (Viagra) 100 Mg Tablet, 100 MG PO DAILYPRN PRN for ERECTILE DYSFUNCTION Miscellaneous Medications Cyanocobalamin (Vitamin B-12) (Vitamin B12) 2,500 Mcg Tab.chew, 2,000 MCG PO Allergies Coded Allergies: povidone-iodine (Verified Allergy, Intermediate, hives, 09/12/19) soap (Verified Allergy, Intermediate, hives, 09/12/19) Penicillins (Verified Adverse Reaction, Intermediate, KIDNEY FAILURE, 09/06/19) amoxicillin (Verified Adverse Reaction, Intermediate, KIDNEY FUNCTION FAILURE, 09/06/19) clavulanic acid (Verified Adverse Reaction, Intermediate, KIDNEY FUNCTION FAILURE, 09/06/19) A-FIB/CHADSVASC A-FIB History Current/History of A-Fib/PAF?: No Current PO Anticoag Therapy: Yes Age/Risk Factor Scoring CHADSVASC: CHADSVASC Response (Comments) Value Age Risk Factor Age 65-74 years old 1 Gender Risk Factor Male 0 Hx of CHF No 0 Hx of HTN Yes 1 Hx of Stroke/TIA/or VTE No 0 Hx of Diabetes No 0 Hx of Vascular Disease No 0 Total 2 Treatment Treatment ordered: Other Other anticoagulant ordered: Sinai Ocampo MD Sep 12, 2019 10:07
[2019-09-12] MEDS: MORPHINE 4 MG/ML 1ML VIAL/SYRINGE (J2270) IV PRN ×2 (11:21→13:29)
--- NOTE | 2019-09-12 11:51 | REP ---
RIGHT HIP, TWO VIEWS: Two views right hip performed. There is placement of a total hip prosthesis, which appears to be in good position. Osseous structures are intact and well aligned. There are metallic beth in the adjacent right pelvis. Electronically Signed by Fei Mayo MD 09/12/2019 12:58 P
[2019-09-12] MEDS ORDERED: ACETAMINOPHEN TAB 650MG DOSE (2X325MG) PO PRN (12:15)
[2019-09-12] MEDS: ASPIRIN 81 MG ENTERIC TAB PO SCH ×2 (12:47→22:08)
[2019-09-12] MEDS: PERCOCET 5MG/325MG TAB PO PRN ×3 (12:48→22:08)
[2019-09-12] MEDS ORDERED: MORPHINE 4 MG/ML 1ML VIAL/SYRINGE (J2270) IV PRN (14:00)
[2019-09-12] MEDS ORDERED: KETOROLAC 30 MG/ML 1ML VIAL IV ONE (14:15)
[2019-09-12] MEDS ORDERED: ALBUTEROL SULFATE 2.5 MG/0.5 ML INH NEB SOLN INH PRN (15:15)
[2019-09-12] MEDS ORDERED: MIRALAX *UNIT DOSE* 17GM PACKET PO PRN (16:45)
[2019-09-12] MEDS: VANCOMYCIN HCL 1,000 MG, VIAL MATE ADAPTER 1 EACH in D5W 250 ML IV SCH (18:27)
[2019-09-12] MEDS ORDERED: SENNA 8.6 MG TAB (SENOKOT) PO SCH (21:00)
[2019-09-12] MEDS: DOCUSATE SODIUM 100 MG CAP PO SCH (22:08)
[2019-09-13 02:00] VITALS: BP 144/83
[2019-09-13] MEDS: PERCOCET 5MG/325MG TAB PO PRN ×3 (04:10→14:29)
[2019-09-13 06:00] VITALS: BP 142/79
[2019-09-13] MEDS: VANCOMYCIN HCL 1,000 MG, VIAL MATE ADAPTER 1 EACH in D5W 250 ML IV SCH (06:25)
[2019-09-13 07:02] LABS: HEMATOCRIT 34.4 % (42.0-52.0); HEMOGLOBIN 11.6 g/dl (13.5-17.5); MEAN CORPUSCULAR HGB CONC 33.7 g/dl (32.0-36.5); PLATELET COUNT, AUTOMATED 150 10^3/uL (150-450); RED BLOOD COUNT 3.51 10^6/uL (4.30-6.10); WHITE BLOOD COUNT 12.5 10^3/uL (4.0-10.0)
[2019-09-13] MEDS ORDERED: PERC5TAB12 PO (07:23)
[2019-09-13] MEDS ORDERED: ASPI81CH33 PO (07:23)
[2019-09-13 07:27] LABS: ALBUMIN 3.5 GM/DL (3.2-5.2); ALT/SGPT 38 U/L (12-78); BILIRUBIN,TOTAL 0.9 MG/DL (0.2-1.0); BLOOD UREA NITROGEN 17 MG/DL (7-18); CALCIUM LEVEL 8.5 MG/DL (8.8-10.2); CARBON DIOXIDE LEVEL 30 MEQ/L (21-32); CHLORIDE LEVEL 105 MEQ/L (98-107); CREATININE FOR GFR 1.19 MG/DL (0.70-1.30); GLOMERULAR FILTRATION RATE > 60.0 (>49); GLUCOSE, FASTING 129 MG/DL (70-100); POTASSIUM SERUM 4.2 MEQ/L (3.5-5.1); SODIUM LEVEL 142 MEQ/L (136-145); TOTAL PROTEIN 6.3 GM/DL (6.4-8.2)
[2019-09-13] MEDS ORDERED: MIRALAX *UNIT DOSE* 17GM PACKET PO ONE (08:30)
[2019-09-13] MEDS ORDERED: OMEPRAZOLE 20 MG CAP PO SCH (09:00)
[2019-09-13] MEDS ORDERED: MONTELUKAST 10 MG TAB PO SCH (09:00)
[2019-09-13] MEDS ORDERED: ATORVASTATIN 20 MG TAB PO SCH (09:00)
[2019-09-13] MEDS ORDERED: THIAMINE 100 MG TAB PO SCH (09:00)
[2019-09-13] MEDS ORDERED: ASCORBIC ACID 500 MG TAB PO SCH (09:00)
[2019-09-13] MEDS ORDERED: PYRIDOXINE 50 MG TAB PO SCH (09:00)
[2019-09-13] MEDS ORDERED: lisinopriL 20 MG TAB PO SCH (09:00)
[2019-09-13 09:51] VITALS: BP 142/79
[2019-09-13] MEDS: ASPIRIN 81 MG ENTERIC TAB PO SCH (09:51)
[2019-09-13] MEDS: DOCUSATE SODIUM 100 MG CAP PO SCH (09:51)
--- NOTE | 2019-09-17 23:47 | RO ---
DATE OF PROCEDURE: 09/12/2019 PREPROCEDURE DIAGNOSIS: Right hip degenerative arthritis. POSTPROCEDURE DIAGNOSIS: Right hip degenerative arthritis. PROCEDURE: Right total hip arthroplasty using a size 5 high offset [place] stem with a +5 neck and a 36 mm ball, and a 54 mm Gription cup, and a neutral polyethylene liner. SURGEON: Juventino Duncan HYDRATE CONTROL TENDER: Ms. Kathy Wise ANESTHESIA: Spinal. ESTIMATED BLOOD LOSS: 200 mL. SPECIMENS: Femoral head. COMPLICATIONS: None. DESCRIPTION OF PROCEDURE: Antibiotics were given intravenously preoperatively and successful spinal anesthetic was induced. She was placed in the lateral decubitus position with a [place] hip positioner, down leg well padded, especially the peroneal nerve. Right hip area was carefully prepped and draped in the usual sterile fashion, leg elevated, and after appropriate time-out, a longitudinal incision was made for a direct lateral approach to the hip. Bovie cautery was used to coagulate crossing vessels down to the tensor fascia, which was divided in line with the skin incision. We then divided the gluteus medius and anterior one-third, posterior two-third junction, and divided the underlying gluteus minimus and anterior hip capsule, carefully dissected off the proximal femur as we externally rotated, then dislocated the hip. Piriformis fossa was identified, starter reamer placed, followed by the canal finding reamer, then the lateralizing reamer. Then we reamed up to a size 5. Femoral neck osteotomy performed using the template. Then we broached up to a size 5 and calcar planer was utilized. We were about a fingerbreadth above the lesser trochanter. We then exposed the acetabulum, performed a labral excision 360 degrees. We then began reaming beginning at 48 mm, advanced in 1 mm increment to 53. The trial 54 fit very nicely, and we used the extramedullary alignment jig to estimate our version and abduction. We then removed the trial, copiously pulsatile irrigated out the acetabulum, then placed the real 54 Gription cup using the extramedullary alignment jig to estimate our abduction and version once again. Central hole eliminator placed, polyethylene placed after irrigating, and then we placed the trial #5 broach, and did a series of trial reductions: First with a +1.5 neck length, high offset with a 36 mm ball; the cup was in good position, it was nice and stable in flexion internal rotation and extension external rotation, but there was some telescoping. I did trial with the 8.5, but it was too tight, and thus we settled on the +5 neck length. We removed the trial, copiously pulsatile lavage irrigated out the femoral canal, as I did several times throughout the operation. I then placed the real #5 stem, dried the trunnion, placed the #36 mm ball with a +5 neck length, and then irrigated the acetabulum, then reduced the hip. Again, it was very stable to flexion internal rotation and extension external rotation with minimal soft tissue telescoping. We then closed anatomically the anterior hip capsule and the gluteus minimus with interrupted #1 PDS sutures, and then the gluteus medius was repaired back anatomically with a series of #1 PDS sutures. We irrigated between layers, then closed the tensor fascia with a combination of #1 PDS sutures and a running #1 Stratafix, irrigated between layers again. Closed the deep subdermal tissues with interrupted #2-0 PDS sutures, skin was closed with beth, covered by an Optifoam, dry sterile bulky dressing. He was then turned supine and transferred to the recovery room in stable condition. There were no intraoperative complications. Kathy Wise, my PA, was very critical to the success of this difficult procedure by helping to prepare the patient, helped to position the patient, helped to manipulate the leg, and apply appropriate soft tissue retraction, helped to close the wound amongst many other tasks to allow me to perform the operation smoothly, efficiently, and safely.
== END 2019-09-13 14:40 | disposition home or self-care (01) | DRG 470 ==
LOC: M OR 06:04 → M MS5PR 11:15
PROVIDERS: ADMIT Orthopaedic Surgery; ATTEND Orthopaedic Surgery
PROC: 0SR902Z Replacement of Right Hip Joint with Metal on Polyethylene Synthetic Substitute, Open Approach (ICD-10-PCS; principal; 2019-09-12 07:30)
DX: M16.11 Unilateral primary osteoarthritis, right hip (principal); Z11.59 Encounter for screening for other viral diseases; I10 Essential (primary) hypertension; J45.30 Mild persistent asthma, uncomplicated; E78.5 Hyperlipidemia, unspecified; K76.0 Fatty (change of) liver, not elsewhere classified; R73.01 Impaired fasting glucose; E66.9 Obesity, unspecified; G43.009 Migraine without aura, not intractable, without status migrainosus; N52.9 Male erectile dysfunction, unspecified; L71.9 Rosacea, unspecified; M50.30 Other cervical disc degeneration, unspecified cervical region; E78.00 Pure hypercholesterolemia, unspecified; H91.93 Unspecified hearing loss, bilateral; K59.00 Constipation, unspecified; J98.4 Other disorders of lung; Z86.010 Personal history of colon polyps; Z79.899 Other long term (current) drug therapy; Z68.30 Body mass index [BMI] 30.0-30.9, adult; Z88.8 Allergy status to other drugs, medicaments and biological substances

== ENCOUNTER → 2019-12-21 | Outpatient (CLI) | payer MEDICARE, BC, OTHER ==
[~2019-12-21] MED LIST changes: +ASPI81CH33 PO; -LR 1,000 ML IV ONE; +PERC5TAB12 PO; -VITA1TAB23 PO; +VITA250T26 PO
[2019-12-21 12:52] LABS: BASO # 0.1 10^3/uL (0.0-0.2); BASO % 1.1 % (0.0-1.0); EOS # 0.2 10^3/uL (0.0-0.5); EOS % 1.6 % (0.0-3.0); HEMATOCRIT 39.4 % (42.0-52.0); HEMOGLOBIN 13.1 g/dl (13.5-17.5); LYMPH # 2.4 10^3/uL (1.5-5.0); LYMPH % 24.6 % (24.0-44.0); MEAN CORPUSCULAR HGB CONC 33.2 g/dl (32.0-36.5); MEAN CORPUSCULAR VOLUME 96.1 fl (80.0-96.0); MONO # 0.9 10^3/uL (0.0-0.8); MONO % 9.5 % (0.0-5.0); NEUTROPHILS # 6.1 10^3/uL (1.5-8.5); NEUTROPHILS % 61.6 % (36.0-66.0); PLATELET COUNT, AUTOMATED 203 10^3/uL (150-450); WHITE BLOOD COUNT 9.9 10^3/uL (4.0-10.0)
[2019-12-21 13:36] LABS: VITAMIN B12 LEVEL 1377 PG/ML (247-911)
[2019-12-21 13:47] LABS: HEMOGLOBIN A1c 5.5 %
[2019-12-21 13:47] LABS: MALB URINE SIEMENS 13.8 MG/L
== END ==
LOC: M PLALAB 08:39
PROVIDERS: ATTEND Family Medicine
DX: Z12.5 Encounter for screening for malignant neoplasm of prostate (principal); R73.01 Impaired fasting glucose; D75.89 Other specified diseases of blood and blood-forming organs
CPT/HCPCS: 36415; 82043; 82607; 83036; 83525; 85025; 86335; G0103

== ENCOUNTER → 2020-02-21 | Outpatient (REF) | payer MEDICARE, OTHER ==
[2020-02-21 15:43] LABS: BASO # 0.1 10^3/uL (0.0-0.2); BASO % 1.1 % (0.0-1.0); EOS # 0.1 10^3/uL (0.0-0.5); EOS % 0.9 % (0.0-3.0); HEMATOCRIT 45.3 % (42.0-52.0); HEMOGLOBIN 14.5 g/dl (13.5-17.5); LYMPH # 2.9 10^3/uL (1.5-5.0); LYMPH % 24.5 % (24.0-44.0); MEAN CORPUSCULAR HEMOGLOBIN 31.5 pg (27.0-33.0); MEAN CORPUSCULAR VOLUME 98.3 fl (80.0-96.0); MONO # 1.2 10^3/uL (0.0-0.8); MONO % 9.8 % (0.0-5.0); NEUTROPHILS # 7.3 10^3/uL (1.5-8.5); NEUTROPHILS % 62.1 % (36.0-66.0); PLATELET COUNT, AUTOMATED 234 10^3/uL (150-450); RED BLOOD COUNT 4.61 10^6/uL (4.30-6.10); WHITE BLOOD COUNT 11.7 10^3/uL (4.0-10.0)
[2020-02-21 16:07] LABS: ALBUMIN 4.6 GM/DL (3.2-5.2); ALT/SGPT 34 U/L (12-78); BILIRUBIN,TOTAL 0.8 MG/DL (0.2-1.0); BLOOD UREA NITROGEN 19 MG/DL (7-18); CALCIUM LEVEL 9.9 MG/DL (8.8-10.2); CARBON DIOXIDE LEVEL 30 MEQ/L (21-32); CHLORIDE LEVEL 106 MEQ/L (98-107); CREATININE FOR GFR 1.15 MG/DL (0.70-1.30); FERRITIN 73 NG/ML (26-388); GLOMERULAR FILTRATION RATE > 60.0 (>49); GLUCOSE, FASTING 102 MG/DL (70-100); IRON (FE) 98 UG/DL (65-175); PERCENT SATURATION 28.9 % (19.7-50.0); POTASSIUM SERUM 4.7 MEQ/L (3.5-5.1); SODIUM LEVEL 141 MEQ/L (136-145); TOTAL IRON BINDING CAPACITY 339 UG/DL (250-450); TOTAL PROTEIN 7.9 GM/DL (6.4-8.2)
== END ==
LOC: M SFHCPLAZ 11:38
PROVIDERS: ATTEND Family Medicine
DX: D75.89 Other specified diseases of blood and blood-forming organs (principal); Z12.5 Encounter for screening for malignant neoplasm of prostate
CPT/HCPCS: 36415; 80053; 82728; 83550; 85025; 85046; 86140; 86677; G0103; G0463

== ENCOUNTER → 2020-03-17 | Outpatient (CLI) | payer SELFPAY ==
[~2020-03-17] MED LIST changes: -MONT10TA4 PO; +MONT5TAB2 PO
== END ==
LOC: M LABSMTC 14:24
PROVIDERS: ATTEND Pediatrics
DX: Z20.828 Contact with and (suspected) exposure to other viral communicable diseases (principal)

== ENCOUNTER → 2020-07-03 | Outpatient (REF) | payer MEDICARE, OTHER ==
[~2020-07-03] MED LIST changes: -LISI-538 PO; +LISI20TA33 PO; +MONT10TA10 PO; -MONT5TAB2 PO; +PYRI50TA41 PO; -VITA50TA7 PO
[2020-07-03 11:59] LABS: BASO # 0.1 10^3/uL (0.0-0.2); EOS # 0.2 10^3/uL (0.0-0.5); EOS % 1.5 % (0.0-3.0); HEMATOCRIT 44.3 % (42.0-52.0); HEMOGLOBIN 14.8 g/dl (13.5-17.5); LYMPH # 2.4 10^3/uL (1.5-5.0); LYMPH % 20.9 % (24.0-44.0); MEAN CORPUSCULAR HEMOGLOBIN 33.2 pg (27.0-33.0); MEAN CORPUSCULAR HGB CONC 33.4 g/dl (32.0-36.5); MEAN CORPUSCULAR VOLUME 99.3 fl (80.0-96.0); MONO # 1.1 10^3/uL (0.0-0.8); MONO % 9.3 % (2.0-8.0); NEUTROPHILS # 7.6 10^3/uL (1.5-8.5); NEUTROPHILS % 65.4 % (36.0-66.0); PLATELET COUNT, AUTOMATED 191 10^3/uL (150-450); RED BLOOD COUNT 4.46 10^6/uL (4.30-6.10); WHITE BLOOD COUNT 11.6 10^3/uL (4.0-10.0)
[2020-07-03 12:33] LABS: HEMOGLOBIN A1c 5.5 %
[2020-07-03 12:41] LABS: ALBUMIN 4.5 GM/DL (3.2-5.2); ALT/SGPT 36 U/L (12-78); BILIRUBIN,TOTAL 0.7 MG/DL (0.2-1.0); BLOOD UREA NITROGEN 22 MG/DL (7-18); CALCIUM LEVEL 9.3 MG/DL (8.8-10.2); CARBON DIOXIDE LEVEL 30 MEQ/L (21-32); CHLORIDE LEVEL 109 MEQ/L (98-107); CHOLESTEROL LEVEL 167 MG/DL (<200); CHOLESTEROL RISK RATIO 3.408 (<5); CREATININE FOR GFR 1.05 MG/DL (0.70-1.30); GLOMERULAR FILTRATION RATE > 60.0 (>49); GLUCOSE, FASTING 107 MG/DL (70-100); HDL CHOLESTEROL 49 MG/DL (>40); LDL CHOLESTEROL 76 MG/DL (<100); NON-HDL-C 118 MG/DL; POTASSIUM SERUM 4.4 MEQ/L (3.5-5.1); SODIUM LEVEL 143 MEQ/L (136-145); TOTAL PROTEIN 7.4 GM/DL (6.4-8.2); TRIGLYCERIDES LEVEL 212 MG/DL (<150)
== END ==
LOC: M PLALAB 09:31
PROVIDERS: ATTEND Family Medicine
DX: D75.89 Other specified diseases of blood and blood-forming organs (principal); R73.01 Impaired fasting glucose; Z12.5 Encounter for screening for malignant neoplasm of prostate; Z79.899 Other long term (current) drug therapy
CPT/HCPCS: 36415; 80053; 80061; 83036; 84439; 84443; 85025; 85046; G0103; G0463

== ENCOUNTER → 2020-11-07 | Outpatient (CLI) | payer MEDICARE, BC, OTHER ==
[2020-11-07 10:43] LABS: BASO # 0.1 10^3/uL (0.0-0.2); BASO % 1.1 % (0.0-1.0); EOS # 0.2 10^3/uL (0.0-0.5); EOS % 2.2 % (0.0-3.0); HEMATOCRIT 42.6 % (42.0-52.0); HEMOGLOBIN 14.4 g/dl (13.5-17.5); LYMPH # 2.6 10^3/uL (1.5-5.0); LYMPH % 27.1 % (24.0-44.0); MEAN CORPUSCULAR HEMOGLOBIN 33.1 pg (27.0-33.0); MEAN CORPUSCULAR HGB CONC 33.8 g/dl (32.0-36.5); MEAN CORPUSCULAR VOLUME 97.9 fl (80.0-96.0); MONO % 10.7 % (2.0-8.0); NEUTROPHILS # 5.5 10^3/uL (1.5-8.5); NEUTROPHILS % 57.1 % (36.0-66.0); PLATELET COUNT, AUTOMATED 203 10^3/uL (150-450); RED BLOOD COUNT 4.35 10^6/uL (4.30-6.10); WHITE BLOOD COUNT 9.6 10^3/uL (4.0-10.0)
[2020-11-07 11:15] LABS: ALBUMIN 4.2 GM/DL (3.2-5.2); ALT/SGPT 39 U/L (12-78); BILIRUBIN,TOTAL 0.5 MG/DL (0.2-1.0); BLOOD UREA NITROGEN 15 MG/DL (7-18); CALCIUM LEVEL 8.5 MG/DL (8.8-10.2); CARBON DIOXIDE LEVEL 32 MEQ/L (21-32); CHLORIDE LEVEL 108 MEQ/L (98-107); CREATININE FOR GFR 1.09 MG/DL (0.70-1.30); GLOMERULAR FILTRATION RATE > 60.0 (>49); GLUCOSE, FASTING 108 MG/DL (70-100); POTASSIUM SERUM 4.2 MEQ/L (3.5-5.1); SODIUM LEVEL 143 MEQ/L (136-145)
[2020-11-11 12:37] LABS: ALBUMIN % 62.8 % (55.8-66.1); ALPHA-1-GLOBULIN % 3.8 % (2.9-4.9); ALPHA-1-GLOBULINS 0.27 GM/DL (0.17-0.41); ALPHA-2-GLOBULINS % 9.8 % (7.1-11.8); BETA-1-GLOBULINS % 5.7 % (4.7-7.2); BETA-2-GLOBULINS % 5.1 % (3.2-6.5); GAMMA GLOBULIN % 12.8 % (11.1-18.8)
[2020-11-11 12:38] LABS: ALPHA-2-GLOBULINS 0.69 GM/DL (0.42-0.99); BETA-2-GLOBULINS 0.36 GM/DL (0.19-0.55)
== END ==
LOC: M PLALAB 08:41
PROVIDERS: ATTEND Family Medicine
DX: R73.01 Impaired fasting glucose (principal); E55.9 Vitamin D deficiency, unspecified

== ENCOUNTER → 2021-02-09 | Outpatient (CLI) | payer MEDICARE, OTHER, BC ==
[2021-02-09 18:09] LABS: HEMATOCRIT 46.8 % (42.0-52.0); HEMOGLOBIN 15.3 g/dl (13.5-17.5); MEAN CORPUSCULAR HEMOGLOBIN 32.9 pg (27.0-33.0); MEAN CORPUSCULAR HGB CONC 32.7 g/dl (32.0-36.5); MEAN CORPUSCULAR VOLUME 100.6 fl (80.0-96.0); PLATELET COUNT, AUTOMATED 207 10^3/uL (150-450); RED BLOOD COUNT 4.65 10^6/uL (4.30-6.10); WHITE BLOOD COUNT 16.9 10^3/uL (4.0-10.0)
[2021-02-09 18:30] LABS: BLOOD UREA NITROGEN 15 MG/DL (7-18); CALCIUM LEVEL 9.6 MG/DL (8.8-10.2); CARBON DIOXIDE LEVEL 30 MEQ/L (21-32); CHLORIDE LEVEL 105 MEQ/L (98-107); CREATININE FOR GFR 1.26 MG/DL (0.70-1.30); GLOMERULAR FILTRATION RATE > 60.0 (>49); GLUCOSE, FASTING 115 MG/DL (70-100); POTASSIUM SERUM 4.1 MEQ/L (3.5-5.1); SODIUM LEVEL 140 MEQ/L (136-145)
[2021-02-09 19:56] LABS: ATYPICAL LYMPH 5 % (0-5); BASOPHILS 1 % (0-1); EOSINOPHILS 3 % (0-3); LYMPHOCYTES 13 % (16-44); MONOCYTES 5 % (0-5); NEUTROPHILS 72 % (28-66)
[2021-02-09 19:57] LABS: PLATELET ESTIMATE NORMAL (NORMAL)
== END ==
LOC: M WUC 10:52
PROVIDERS: ATTEND Physician Assistant
DX: R22.1 Localized swelling, mass and lump, neck (principal); E04.1 Nontoxic single thyroid nodule

== ENCOUNTER → 2021-02-09 | Outpatient (CLI) | payer MEDICARE, BC, OTHER ==
--- NOTE | 2021-02-09 16:43 | REP ---
INDICATION: LOCALIZED SWELLING MASS AND LUMP NECK. COMPARISON: None. TECHNIQUE: Real-time sonographic evaluation of right neck soft tissues performed. FINDINGS: At the site of the palpable lump there is a complex right thyroid nodule. This measures 4.3 x 3.1 x 2.9 cm. Solid and cystic areas are noted. Tiny punctate echogenic foci are seen within the nodule. I cannot exclude microcalcifications. There are also a few nonenlarged lymph nodes in the right neck soft tissues. IMPRESSION: At the site of the palpable lump is a complex right thyroid nodule containing cystic and solid areas as well as multiple punctate echogenic foci. Recommend ultrasound-guided FNA. <Electronically signed by Fei Mayo > 02/09/21 1640
== END ==
LOC: M RAD 16:01
PROVIDERS: ATTEND Physician Assistant
DX: E04.1 Nontoxic single thyroid nodule (principal); R22.1 Localized swelling, mass and lump, neck

== ENCOUNTER → 2021-02-10 | Outpatient (CLI) | payer MEDICARE, BC, OTHER ==
[~2021-02-10] MED LIST changes: -MONT10TA10 PO; +MONT10TA97 PO; -OMEP-221 PO; +OMEP40CA5 PO
[2021-02-10 13:44] LABS: BASO # 0.2 10^3/uL (0.0-0.2); BASO % 0.6 % (0.0-1.0); EOS % 0.2 % (0.0-3.0); HEMATOCRIT 51.5 % (42.0-52.0); LYMPH # 2.4 10^3/uL (1.5-5.0); LYMPH % 9.3 % (24.0-44.0); MONO # 1.9 10^3/uL (0.0-0.8); MONO % 7.3 % (2.0-8.0); NEUTROPHILS % 81.1 % (36.0-66.0); PLATELET COUNT, AUTOMATED 261 10^3/uL (150-450); RED BLOOD COUNT 5.31 10^6/uL (4.30-6.10); WHITE BLOOD COUNT 25.9 10^3/uL (4.0-10.0)
[2021-02-10 13:46] LABS: HEMOGLOBIN 17.5 g/dl (13.5-17.5)
[2021-02-10 14:17] LABS: ALBUMIN 3.9 GM/DL (3.2-5.2); BILIRUBIN,TOTAL 1.1 MG/DL (0.2-1.0); CALCIUM LEVEL 9.7 MG/DL (8.8-10.2); CREATININE FOR GFR 1.62 MG/DL (0.70-1.30); GLOMERULAR FILTRATION RATE 45.5 (>49); POTASSIUM SERUM 4.2 MEQ/L (3.5-5.1); TOTAL PROTEIN 7.9 GM/DL (6.4-8.2)
== END ==
LOC: M PLALAB 11:22
PROVIDERS: ATTEND Physician Assistant Medical
DX: R10.32 Left lower quadrant pain (principal)
CPT/HCPCS: 36415; 80053; 83690; 85025; 86677; G0463

== ENCOUNTER → 2021-05-21 | Outpatient (CLI) | payer MEDICARE, BC, OTHER ==
[2021-05-21 15:35] LABS: BASO # 0.1 10^3/uL (0.0-0.2); BASO % 0.8 % (0.0-1.0); EOS # 0.2 10^3/uL (0.0-0.5); EOS % 1.3 % (0.0-3.0); HEMATOCRIT 43.2 % (42.0-52.0); HEMOGLOBIN 14.5 g/dl (13.5-17.5); LYMPH # 2.4 10^3/uL (1.5-5.0); LYMPH % 20.5 % (24.0-44.0); MEAN CORPUSCULAR HEMOGLOBIN 32.6 pg (27.0-33.0); MEAN CORPUSCULAR HGB CONC 33.6 g/dl (32.0-36.5); MEAN CORPUSCULAR VOLUME 97.1 fl (80.0-96.0); MONO # 1.1 10^3/uL (0.0-0.8); MONO % 9.2 % (2.0-8.0); NEUTROPHILS % 67.4 % (36.0-66.0); PLATELET COUNT, AUTOMATED 191 10^3/uL (150-450); RED BLOOD COUNT 4.45 10^6/uL (4.30-6.10); WHITE BLOOD COUNT 11.9 10^3/uL (4.0-10.0)
[2021-05-21 15:53] LABS: HEMOGLOBIN A1c 5.6 %
[2021-05-21 16:08] LABS: ALBUMIN 4.2 GM/DL (3.2-5.2); ALT/SGPT 31 U/L (12-78); BILIRUBIN,TOTAL 0.9 MG/DL (0.2-1.0); BLOOD UREA NITROGEN 15 MG/DL (7-18); CALCIUM LEVEL 8.9 MG/DL (8.8-10.2); CARBON DIOXIDE LEVEL 30 MEQ/L (21-32); CHLORIDE LEVEL 108 MEQ/L (98-107); CHOLESTEROL LEVEL 139 MG/DL (<200); CHOLESTEROL RISK RATIO 3.564 (<5); CREATININE FOR GFR 0.98 MG/DL (0.70-1.30); FREE T4 0.96 NG/DL (0.76-1.46); GLOMERULAR FILTRATION RATE > 60.0 (>49); GLUCOSE, FASTING 90 MG/DL (70-100); HDL CHOLESTEROL 39 MG/DL (>40); LDL CHOLESTEROL 58 MG/DL (<100); NON-HDL-C 100 MG/DL; NT-PRO BNP 31 PG/ML (<125); SODIUM LEVEL 142 MEQ/L (136-145); THYROID PEROXIDASE ANTIBODY < 28.0 U/ML (<60.0); TOTAL PROTEIN 7.3 GM/DL (6.4-8.2); TRIGLYCERIDES LEVEL 208 MG/DL (<150)
[2021-05-25 20:08] LABS: CALCITONIN 4.3 pg/mL (0.0-8.4); THRYOGLOBULIN ANTIBODIES (ATA) < 1.0 IU/mL (0.0-0.9); THYROGLOBULIN QUANTITATIVE 33.9 ng/mL (1.4-29.2)
== END ==
LOC: M PLALAB 13:12
PROVIDERS: ATTEND Family Medicine
DX: D75.89 Other specified diseases of blood and blood-forming organs (principal); I10 Essential (primary) hypertension; E78.2 Mixed hyperlipidemia; E04.1 Nontoxic single thyroid nodule; Z12.5 Encounter for screening for malignant neoplasm of prostate; Z79.899 Other long term (current) drug therapy

== ENCOUNTER → 2021-08-12 | Outpatient (REF) | payer MEDICARE, BC, OTHER | LOC: M SFHCPLAZ 17:09 | PROVIDERS: ATTEND Physician Assistant | DX: R05.9 Cough, unspecified (principal) ==

== ENCOUNTER → 2021-09-28 | Outpatient (CLI) | payer MEDICARE, BC, OTHER ==
[~2021-09-28] MED LIST changes: +ALBU2.5V10 INH; -ALBU83IN INH
== END ==
LOC: M WHC 10:27
PROVIDERS: ATTEND Family Medicine
DX: E04.1 Nontoxic single thyroid nodule (principal)

== ENCOUNTER → 2021-11-24 | Outpatient (CLI) | payer MEDICARE, BC, OTHER ==
[2021-11-24 15:39] LABS: HEMOGLOBIN A1c 5.5 %
[2021-11-24 15:50] LABS: ALBUMIN 4.1 GM/DL (3.2-5.2); ALT/SGPT 31 U/L (12-78); BILIRUBIN,TOTAL 0.6 MG/DL (0.2-1.0); BLOOD UREA NITROGEN 17 MG/DL (7-18); CALCIUM LEVEL 9.2 MG/DL (8.8-10.2); CARBON DIOXIDE LEVEL 29 MEQ/L (21-32); CHLORIDE LEVEL 108 MEQ/L (98-107); CREATININE FOR GFR 1.06 MG/DL (0.70-1.30); FREE T4 0.83 NG/DL (0.76-1.46); GLOMERULAR FILTRATION RATE > 60.0 (>49); GLUCOSE, FASTING 106 MG/DL (70-100); NT-PRO BNP 34 PG/ML (<125); POTASSIUM SERUM 4.7 MEQ/L (3.5-5.1); SODIUM LEVEL 141 MEQ/L (136-145); TOTAL PROTEIN 6.9 GM/DL (6.4-8.2)
[2021-11-24 16:31] LABS: MALB URINE SIEMENS 16.3 MG/L; MAU/CREAT RATIO 7.1 MCG/MG (0.0-30.0)
== END ==
LOC: M PLALAB 09:15
PROVIDERS: ATTEND Family Medicine
DX: R73.01 Impaired fasting glucose (principal); Z12.5 Encounter for screening for malignant neoplasm of prostate; I10 Essential (primary) hypertension; E04.1 Nontoxic single thyroid nodule
CPT/HCPCS: 36415; 80053; 82043; 83036; 83525; 83880; 84439; 84443; G0103

== ENCOUNTER → 2022-02-22 | Outpatient (CLI) | payer MEDICARE, BC, OTHER | LOC: M RAD 13:09 | PROVIDERS: ATTEND Family Medicine | DX: E04.1 Nontoxic single thyroid nodule (principal) ==

== ENCOUNTER → 2022-04-07 | Outpatient (CLI) | payer MEDICARE, BC, OTHER ==
[2022-04-07 13:57] LABS: HEMOGLOBIN A1c 5.2 % (4.0-6.0)
[2022-04-07 14:14] LABS: C REACTIVE PROTEIN QUANTITATIV < 0.40 MG/DL (<1.0); MAU/CREAT RATIO 6.4 MCG/MG (0.0-30.0)
[2022-04-07 14:17] LABS: ALBUMIN 4.1 G/DL (3.2-5.2); ALKALINE PHOSPHATASE 89 U/L (46-116); ALT/SGPT 40 U/L (7.0-40); AST/SGOT 36 U/L (<34); BILIRUBIN,TOTAL 0.7 MG/DL (0.3-1.2); BLOOD UREA NITROGEN 16 MG/DL (9-23); CALCIUM LEVEL 9.1 MG/DL (8.3-10.6); CARBON DIOXIDE LEVEL 30 MMOL/L (20-31); CHLORIDE LEVEL 106 MMOL/L (98-107); CPK CREATINE PHOSPHOKINASE 108 U/L (46-171); CREATININE FOR GFR 1.03 MG/DL (0.70-1.30); GLOMERULAR FILTRATION RATE > 60.0 (>49); GLUCOSE, FASTING 123 MG/DL (74-106); SODIUM LEVEL 142 MMOL/L (136-145); TOTAL PROTEIN 7.2 G/DL (5.7-8.2)
[2022-04-08 08:08] LABS: APOLIPOPROTEIN B/A-1 RATIO 0.6 ratio (0.0-0.7); INSULIN LEVEL 53.5 uIU/mL (2.6-24.9)
== END ==
LOC: M PLALAB 10:57
PROVIDERS: ATTEND Family Medicine
DX: R73.01 Impaired fasting glucose (principal); E78.2 Mixed hyperlipidemia

== ENCOUNTER → 2022-08-20 | Outpatient (CLI) | payer MEDICARE, BC, OTHER ==
[2022-08-20 18:04] LABS: BASO # 0.1 10^3/uL (0.0-0.2); BASO % 1.1 % (0.0-1.0); EOS # 0.1 10^3/uL (0.0-0.5); EOS % 1.2 % (0.0-3.0); HEMATOCRIT 41.4 % (42.0-52.0); HEMOGLOBIN 14.1 g/dl (13.5-17.5); LYMPH # 3.1 10^3/uL (1.5-5.0); LYMPH % 27.8 % (24.0-44.0); MEAN CORPUSCULAR HEMOGLOBIN 33.6 pg (27.0-33.0); MEAN CORPUSCULAR HGB CONC 34.1 g/dl (32.0-36.5); MEAN CORPUSCULAR VOLUME 98.6 fl (80.0-96.0); MONO # 1.2 10^3/uL (0.0-0.8); MONO % 10.9 % (2.0-8.0); NEUTROPHILS # 6.5 10^3/uL (1.5-8.5); NEUTROPHILS % 57.8 % (36.0-66.0); PLATELET COUNT, AUTOMATED 185 10^3/uL (150-450); WHITE BLOOD COUNT 11.3 10^3/uL (4.0-10.0)
[2022-08-20 18:39] LABS: ALBUMIN 4.2 G/DL (3.2-5.2); ALKALINE PHOSPHATASE 74 U/L (46-116); ALT/SGPT 43 U/L (7.0-40); AST/SGOT 34 U/L (<34); BILIRUBIN,TOTAL 1.1 MG/DL (0.3-1.2); BLOOD UREA NITROGEN 16 MG/DL (9-23); CALCIUM LEVEL 8.9 MG/DL (8.3-10.6); CARBON DIOXIDE LEVEL 29 MMOL/L (20-31); CHLORIDE LEVEL 106 MMOL/L (98-107); CREATININE FOR GFR 0.99 MG/DL (0.70-1.30); GLOMERULAR FILTRATION RATE > 60.0 (>49); GLUCOSE, FASTING 95 MG/DL (74-106); MAGNESIUM LEVEL 1.9 MG/DL (1.8-2.4); POTASSIUM SERUM 3.9 MMOL/L (3.5-5.1); SODIUM LEVEL 142 MMOL/L (136-145); TOTAL PROTEIN 6.9 G/DL (5.7-8.2)
== END ==
LOC: M PLALAB 14:23
PROVIDERS: ATTEND Family Medicine
DX: J45.40 Moderate persistent asthma, uncomplicated (principal); I10 Essential (primary) hypertension; K76.0 Fatty (change of) liver, not elsewhere classified; E55.9 Vitamin D deficiency, unspecified; Z12.5 Encounter for screening for malignant neoplasm of prostate

== ENCOUNTER → 2022-10-21 | Outpatient (CLI) | payer MEDICARE, BC, OTHER | LOC: M CARPUL 10:16 | PROVIDERS: ATTEND Family Medicine | DX: R06.09 Other forms of dyspnea (principal) ==

== ENCOUNTER → 2023-02-07 | Outpatient (CLI) | payer MEDICARE, BC, OTHER ==
[2023-02-07 10:38] LABS: ALBUMIN 4.2 G/DL (3.2-5.2); ALKALINE PHOSPHATASE 86 U/L (46-116); ALT/SGPT 32 U/L (7.0-40); AST/SGOT 24 U/L (<34); BILIRUBIN,TOTAL 0.8 MG/DL (0.3-1.2); BLOOD UREA NITROGEN 15 MG/DL (9-23); CALCIUM LEVEL 9.2 MG/DL (8.3-10.6); CARBON DIOXIDE LEVEL 30 MMOL/L (20-31); CHLORIDE LEVEL 103 MMOL/L (98-107); CHOLESTEROL LEVEL 130 MG/DL (<200); CREATININE FOR GFR 0.99 MG/DL (0.70-1.30); FREE T4 1.02 NG/DL (0.89-1.76); GLOMERULAR FILTRATION RATE > 60.0 (>49); GLUCOSE, FASTING 98 MG/DL (74-106); HDL CHOLESTEROL 36.1 MG/DL (>40); LDL CHOLESTEROL 57.7 MG/DL (<100); NON-HDL-C 93.9 MG/DL; POTASSIUM SERUM 4.1 MMOL/L (3.5-5.1); SODIUM LEVEL 141 MMOL/L (136-145); TOTAL PROTEIN 7.1 G/DL (5.7-8.2); TRIGLYCERIDES LEVEL 181 MG/DL (<150)
[2023-02-07 12:00] LABS: INR 1.03; PARTIAL THROMBOPLASTIN TIME 31.6 SECONDS (24.8-34.2); PROTHROMBIN TIME 13.2 SECONDS (12.5-14.5)
== END ==
LOC: M PLALAB 08:11
PROVIDERS: ATTEND Family Medicine
DX: K76.0 Fatty (change of) liver, not elsewhere classified (principal); R73.01 Impaired fasting glucose; I10 Essential (primary) hypertension

== ENCOUNTER → 2023-02-10 | Outpatient (CLI) | payer MEDICARE, BC, OTHER | LOC: M RAD 08:30 | PROVIDERS: ATTEND Family Medicine | DX: K76.0 Fatty (change of) liver, not elsewhere classified (principal); K76.89 Other specified diseases of liver ==

== ENCOUNTER → 2023-06-16 | Outpatient (REF) | payer MEDICARE, OTHER | LOC: M SFHCPLAZ 12:48 | PROVIDERS: ATTEND Family Medicine | DX: R73.01 Impaired fasting glucose (principal); I34.0 Nonrheumatic mitral (valve) insufficiency; D75.89 Other specified diseases of blood and blood-forming organs; Z12.5 Encounter for screening for malignant neoplasm of prostate ==

== ENCOUNTER → 2023-07-22 | Outpatient (CLI) | payer MEDICARE, OTHER, BC ==
[2023-07-22 18:37] LABS: HEMATOCRIT 42.6 % (42.0-52.0); HEMOGLOBIN 14.4 g/dl (13.5-17.5); MEAN CORPUSCULAR HEMOGLOBIN 33.2 pg (27.0-33.0); MEAN CORPUSCULAR HGB CONC 33.8 g/dl (32.0-36.5); MEAN CORPUSCULAR VOLUME 98.2 fl (80.0-96.0); PLATELET COUNT, AUTOMATED 184 10^3/uL (150-450); RED BLOOD COUNT 4.34 10^6/uL (4.30-6.10); WHITE BLOOD COUNT 10.8 10^3/uL (4.0-10.0)
[2023-07-22 19:05] LABS: BLOOD UREA NITROGEN 17 MG/DL (9-23); CARBON DIOXIDE LEVEL 31 MMOL/L (20-31); CHLORIDE LEVEL 108 MMOL/L (98-107); CREATININE FOR GFR 0.94 MG/DL (0.70-1.30); GLOMERULAR FILTRATION RATE > 60.0 (>42); GLUCOSE, FASTING 84 MG/DL (74-106); SODIUM LEVEL 145 MMOL/L (136-145)
== END ==
LOC: M PLALAB 16:22
PROVIDERS: ATTEND Student in an Organized Health Care Education/Training Program
DX: K92.1 Melena (principal)

== ENCOUNTER → 2023-07-23 | Outpatient (REF) | payer MEDICARE, BC, OTHER | LOC: M SFHCPLAZ 13:42 | PROVIDERS: ATTEND Family Medicine | DX: K92.1 Melena (principal) ==

== ENCOUNTER 2023-08-10 09:47 | Outpatient (RCR) | payer MEDICARE, BC, OTHER | END 2023-09-09 | LOC: M PT 09:47 | PROVIDERS: ATTEND Student in an Organized Health Care Education/Training Program | DX: R42 Dizziness and giddiness (principal) ==

== ENCOUNTER → 2023-08-10 | Outpatient (CLI) | payer MEDICARE, BC, OTHER ==
[2023-08-10 14:58] LABS: BASO # 0.1 10^3/uL (0.0-0.2); BASO % 1.2 % (0.0-1.0); EOS # 0.1 10^3/uL (0.0-0.5); EOS % 1.1 % (0.0-3.0); HEMATOCRIT 44.7 % (42.0-52.0); HEMOGLOBIN 15.2 g/dl (13.5-17.5); LYMPH # 2.8 10^3/uL (1.5-5.0); LYMPH % 24.4 % (24.0-44.0); MEAN CORPUSCULAR HEMOGLOBIN 33.9 pg (27.0-33.0); MEAN CORPUSCULAR VOLUME 99.6 fl (80.0-96.0); MONO # 1.1 10^3/uL (0.0-0.8); MONO % 9.8 % (2.0-8.0); NEUTROPHILS # 7.1 10^3/uL (1.5-8.5); NEUTROPHILS % 61.8 % (36.0-66.0); PLATELET COUNT, AUTOMATED 206 10^3/uL (150-450); RED BLOOD COUNT 4.49 10^6/uL (4.30-6.10); WHITE BLOOD COUNT 11.4 10^3/uL (4.0-10.0)
[2023-08-10 15:18] LABS: HEMOGLOBIN A1c 5.3 % (4.0-6.0)
[2023-08-10 15:26] LABS: ALBUMIN 4.5 G/DL (3.2-5.2); ALKALINE PHOSPHATASE 80 U/L (46-116); ALT/SGPT 42 U/L (7.0-40); AST/SGOT 33 U/L (<34); BILIRUBIN,TOTAL 0.9 MG/DL (0.3-1.2); BLOOD UREA NITROGEN 16 MG/DL (9-23); CARBON DIOXIDE LEVEL 31 MMOL/L (20-31); CHLORIDE LEVEL 105 MMOL/L (98-107); CREATININE FOR GFR 1.16 MG/DL (0.70-1.30); FERRITIN 53.9 NG/ML (10.5-307.3); GLOMERULAR FILTRATION RATE > 60.0 (>42); GLUCOSE, FASTING 89 MG/DL (74-106); MAGNESIUM LEVEL 2.2 MG/DL (1.8-2.4); POTASSIUM SERUM 4.8 MMOL/L (3.5-5.1); PSA SCREENING 1.86 NG/ML (< 4.00); SODIUM LEVEL 143 MMOL/L (136-145); TOTAL PROTEIN 7.2 G/DL (5.7-8.2)
== END ==
LOC: M PLALAB 11:10
PROVIDERS: ATTEND Family Medicine
DX: Z12.5 Encounter for screening for malignant neoplasm of prostate (principal); R73.01 Impaired fasting glucose; I34.0 Nonrheumatic mitral (valve) insufficiency; D75.89 Other specified diseases of blood and blood-forming organs; Z79.899 Other long term (current) drug therapy
CPT/HCPCS: 36415; 80053; 82728; 83036; 83735; 83880; 85025; G0103

== ENCOUNTER → 2023-11-17 | Outpatient (CLI) | payer MEDICARE, BC, OTHER | LOC: M RAD 13:08 | PROVIDERS: ATTEND Family Medicine | DX: E04.1 Nontoxic single thyroid nodule (principal) ==

== ENCOUNTER 2023-12-19 06:55 | Day surgery (SDC) | payer MEDICARE, BC, OTHER ==
[~2023-12-19] VITALS: Ht 177.8 cm; Wt 92.2 kg
[~2023-12-19 06:55] MED LIST changes: +ACET25TA12 PO; +ALBU8.5H INH; +BREO1INH3 INH; +MUCI1TAB16 PO; +PRESCAP PO; +VITA200010 PO; +ZINC30CA PO
[2023-12-19] MEDS: NS 1,000 ML IV ONE (07:13)
[2023-12-19 08:45] VITALS: TEMP 98.4
[2023-12-19 09:01] VITALS: BP 123/66; O2SAT 94
[2023-12-19] MEDS ORDERED: propofoL 200 MG/20 ML VIAL As Ordered ONE (10:02)
== END 2023-12-19 09:10 | disposition home or self-care (01) ==
LOC: M OPP 06:55
PROVIDERS: ATTEND Internal Medicine Gastroenterology
DX: Z12.11 Encounter for screening for malignant neoplasm of colon (principal); Z86.010 Personal history of colon polyps; D12.2 Benign neoplasm of ascending colon; K64.0 First degree hemorrhoids; K57.30 Diverticulosis of large intestine without perforation or abscess without bleeding; Z79.02 Long term (current) use of antithrombotics/antiplatelets; Z79.1 Long term (current) use of non-steroidal anti-inflammatories (NSAID); Z79.51 Long term (current) use of inhaled steroids; Z79.82 Long term (current) use of aspirin; Z79.899 Other long term (current) drug therapy; Z88.0 Allergy status to penicillin; Z88.1 Allergy status to other antibiotic agents; Z88.4 Allergy status to anesthetic agent; Z88.6 Allergy status to analgesic agent; Z91.048 Other nonmedicinal substance allergy status

== ENCOUNTER → 2024-02-16 | Outpatient (CLI) | payer MEDICARE, BC, OTHER ==
[2024-02-16 12:55] LABS: HEMATOCRIT 44.3 % (42.0-52.0)
[2024-02-16 12:56] LABS: BASO # 0.1 10^3/uL (0.0-0.2); EOS # 0.3 10^3/uL (0.0-0.5); EOS % 2.8 % (0.0-3.0); HEMATOCRIT 44.7 % (42.0-52.0); LYMPH # 2.4 10^3/uL (1.5-5.0); MEAN CORPUSCULAR HEMOGLOBIN 33.4 pg (27.0-33.0); MEAN CORPUSCULAR HGB CONC 33.6 g/dl (32.0-36.5); MEAN CORPUSCULAR VOLUME 99.6 fl (80.0-96.0); MONO % 8.9 % (2.0-8.0); NEUTROPHILS # 7.5 10^3/uL (1.5-8.5); NEUTROPHILS % 64.9 % (36.0-66.0); PLATELET COUNT, AUTOMATED 202 10^3/uL (150-450); RED BLOOD COUNT 4.49 10^6/uL (4.30-6.10); WHITE BLOOD COUNT 11.5 10^3/uL (4.0-10.0)
[2024-02-16 12:59] LABS: ALBUMIN 4.3 G/DL (3.2-5.2); ALKALINE PHOSPHATASE 72 U/L (40-129); ALT/SGPT 35 U/L (7.0-40); AST/SGOT 24 U/L (<34); BILIRUBIN,TOTAL 0.9 MG/DL (0.3-1.2); BLOOD UREA NITROGEN 15 MG/DL (9-23); CALCIUM LEVEL 9.6 MG/DL (8.3-10.6); CARBON DIOXIDE LEVEL 30 MMOL/L (20-31); CHLORIDE LEVEL 107 MMOL/L (98-107); CHOLESTEROL LEVEL 149 MG/DL (<200); CHOLESTEROL RISK RATIO 3.87 (<5); GLOMERULAR FILTRATION RATE > 60.0 (>42); GLUCOSE, FASTING 103 MG/DL (74-106); HDL CHOLESTEROL 38.5 MG/DL (>40); LDL CHOLESTEROL 59.3 MG/DL (<100); NON-HDL-C 110.5 MG/DL; POTASSIUM SERUM 4.4 MMOL/L (3.5-5.1); SODIUM LEVEL 145 MMOL/L (136-145); TOTAL PROTEIN 7.3 G/DL (5.7-8.2); TRIGLYCERIDES LEVEL 256 MG/DL (<150)
[2024-02-16 13:02] LABS: VITAMIN B12 LEVEL 654 PG/ML (211-911)
[2024-02-16 13:28] LABS: HEMOGLOBIN A1c 5.4 % (4.0-6.0)
== END ==
LOC: M PLALAB 09:03
PROVIDERS: ATTEND Family Medicine
DX: I34.0 Nonrheumatic mitral (valve) insufficiency (principal); D75.89 Other specified diseases of blood and blood-forming organs; R73.01 Impaired fasting glucose; E78.2 Mixed hyperlipidemia

== ENCOUNTER → 2024-06-01 | Outpatient (CLI) | payer MEDICARE, BC, OTHER ==
[2024-06-01 15:17] LABS: BASO # 0.1 10^3/uL (0.0-0.2); EOS # 0.1 10^3/uL (0.0-0.5); EOS % 1.1 % (0.0-3.0); HEMATOCRIT 47.1 % (42.0-52.0); LYMPH # 2.9 10^3/uL (1.5-5.0); LYMPH % 25.9 % (24.0-44.0); MEAN CORPUSCULAR HEMOGLOBIN 33.7 pg (27.0-33.0); MEAN CORPUSCULAR VOLUME 99.2 fl (80.0-96.0); MONO # 1.1 10^3/uL (0.0-0.8); MONO % 10.4 % (2.0-8.0); NEUTROPHILS # 6.6 10^3/uL (1.5-8.5); NEUTROPHILS % 60.4 % (36.0-66.0); PLATELET COUNT, AUTOMATED 216 10^3/uL (150-450); RED BLOOD COUNT 4.75 10^6/uL (4.30-6.10)
[2024-06-01 15:25] LABS: HEMOGLOBIN A1c 5.4 % (4.0-6.0)
[2024-06-01 16:47] LABS: ALBUMIN 4.7 G/DL (3.2-5.2); ALKALINE PHOSPHATASE 85 U/L (40-129); ALT/SGPT 45 U/L (7.0-40); AST/SGOT 33 U/L (<34); BLOOD UREA NITROGEN 21 MG/DL (9-23); CALCIUM LEVEL 9.4 MG/DL (8.3-10.6); CARBON DIOXIDE LEVEL 30 MMOL/L (20-31); CHLORIDE LEVEL 105 MMOL/L (98-107); CREATININE FOR GFR 1.02 MG/DL (0.70-1.30); FERRITIN 70.7 NG/ML (10.5-307.3); GLOMERULAR FILTRATION RATE > 60.0 (>42); GLUCOSE, FASTING 114 MG/DL (74-106); POTASSIUM SERUM 4.6 MMOL/L (3.5-5.1); PSA SCREENING 1.95 NG/ML (< 4.00); PTH INTACT 54.3 PG/ML (18.5-88.0); SODIUM LEVEL 143 MMOL/L (136-145); TOTAL 25(OH) VITAMIN D 69.9 NG/ML (20.0-100.0); TOTAL PROTEIN 7.8 G/DL (5.7-8.2)
== END ==
LOC: M PLALAB 08:18
PROVIDERS: ATTEND Family Medicine
DX: D50.9 Iron deficiency anemia, unspecified (principal); I34.0 Nonrheumatic mitral (valve) insufficiency; R73.01 Impaired fasting glucose; Z12.5 Encounter for screening for malignant neoplasm of prostate; E55.9 Vitamin D deficiency, unspecified
CPT/HCPCS: 36415; 80053; 82306; 82728; 83036; 83970; 85025; 86364; G0103

== ENCOUNTER → 2024-07-26 | Outpatient (CLI) | payer MEDICARE, BC, OTHER | LOC: M PLAIMG 08:57 | PROVIDERS: ATTEND Family Medicine | DX: M75.41 Impingement syndrome of right shoulder (principal) ==

== ENCOUNTER → 2025-01-02 | Outpatient (CLI) | payer MEDICARE, BC, OTHER ==
[2025-01-02 12:34] LABS: BASO # 0.1 10^3/uL (0.0-0.2); BASO % 1.0 % (0.0-1.0); EOS # 0.1 10^3/uL (0.0-0.5); EOS % 1.3 % (0.0-3.0); LYMPH # 2.5 10^3/uL (1.5-5.0); LYMPH % 25.6 % (24.0-44.0); MONO # 1.1 10^3/uL (0.0-0.8); MONO % 10.7 % (2.0-8.0); NEUTROPHILS # 5.8 10^3/uL (1.5-8.5); NEUTROPHILS % 59.4 % (36.0-66.0); PLATELET COUNT, AUTOMATED 205 10^3/uL (150-450)
[2025-01-02 12:52] LABS: ALT/SGPT 31.0 U/L (7.0-40); AST/SGOT 26.0 U/L (<34); CALCIUM LEVEL 8.7 MG/DL (8.3-10.6); CARBON DIOXIDE LEVEL 29.0 MMOL/L (20-31); CHLORIDE LEVEL 105.0 MMOL/L (98-107); CHOLESTEROL LEVEL 129.0 MG/DL (<200); CHOLESTEROL RISK RATIO 3.02 (<5); CREATININE FOR GFR 1.08 MG/DL (0.70-1.30); GLOMERULAR FILTRATION RATE 73.4 (>42); LDL CHOLESTEROL 52.5 MG/DL (<100); MAGNESIUM LEVEL 2.2 MG/DL (1.8-2.4); NON-HDL-C 86.3 MG/DL; POTASSIUM SERUM 4.1 MMOL/L (3.5-5.1); PSA SCREENING 1.97 NG/ML (< 4.00); SODIUM LEVEL 143.0 MMOL/L (136-145); TRIGLYCERIDES LEVEL 169.0 MG/DL (<150)
[2025-01-02 13:35] LABS: ESTIMATED AVERAGE GLUCOSE 114.0 MG/DL (60-110)
== END ==
LOC: M PLALAB 08:13
PROVIDERS: ATTEND Family Medicine
DX: D50.9 Iron deficiency anemia, unspecified (principal); I34.0 Nonrheumatic mitral (valve) insufficiency; R73.01 Impaired fasting glucose; Z12.5 Encounter for screening for malignant neoplasm of prostate; I10 Essential (primary) hypertension; E78.2 Mixed hyperlipidemia
CPT/HCPCS: 36415; 80053; 80061; 82728; 83036; 83735; 83880; 85025; G0103

== ENCOUNTER → 2025-03-26 | Outpatient (CLI) | payer MEDICARE, BC, OTHER | LOC: M PLAIMG 14:13 | PROVIDERS: ATTEND Family Medicine | DX: I34.0 Nonrheumatic mitral (valve) insufficiency (principal) ==